=== PATIENT | male | born 1980 | race Caucasian/White ===

== ENCOUNTER 2022-04-18 18:18 | Emergency (ER) | payer OTHER, SELFPAY ==
--- NOTE | ~2022-04-18 | CT_ITS ---
EXAMINATION: CT ABDOMEN AND PELVIS WITH CONTRAST CLINICAL INFORMATION: Bilateral flank pain COMPARISON: CT abdomen pelvis 08/05/2013 TECHNIQUE: Multidetector volumetric images were obtained from the superior aspect of the liver through the pubic symphysis following administration 85 mL of Omnipaque 350 intravenous contrast. Sagittal and coronal reformatted images were obtained on the technologist's workstation. Oral contrast: No This CT examination was performed using dose optimization techniques as appropriate, variously including the following: *Automated exposure control *Adjustment of mA and/or kV according to patient size (this includes techniques or standardized protocols for targeted exams where dose is matched to indication/reason for exam; i.e. extremities or head) *Use of iterative reconstruction technique DLP: 731 mGy-cm FINDINGS: LUNG BASES: Minimal dependent bibasilar atelectasis. LIVER, GALLBLADDER, AND BILIARY TREE: Innumerable small subcentimeter hepatic hypodense lesions, likely tiny cysts. Couple larger low-density cysts are seen in the left liver lobe, largest 2.7 cm in size, increased in size since the prior. Normal hepatic attenuation. No biliary ductal dilation. The gallbladder is unremarkable with no evidence of radiopaque gallstones, gallbladder wall thickening, or obvious pericholecystic inflammatory changes. PANCREAS: Unremarkable. SPLEEN: Unremarkable. ADRENAL GLANDS: Unremarkable. KIDNEYS AND URETERS: Symmetric nephrograms. No renal calculi or hydronephrosis. No striated nephrograms no perinephric inflammatory fat stranding. He small low-density lesions in both kidneys are too small to reliably characterize, likely small cysts, largest approximately 0.9 cm in size. No further follow-up recommended. BLADDER: Unremarkable. GASTROINTESTINAL TRACT: No dilated bowel loops. No bowel wall thickening. Appendix not visualized. No inflammatory change at the base of the cecum. No free air or ascites. ABDOMINAL WALL: Small fat-containing umbilical hernia. LYMPH NODES: No lymphadenopathy. VASCULAR: Normal caliber abdominal aorta. Mild vascular calcifications. PELVIC VISCERA: Unremarkable. OSSEOUS STRUCTURES: No acute fracture. No suspicious appearing osseous lesion. There is an incompletely imaged lucent lesion of bone in the left proximal femur with sclerotic rim, not included in the [id number] of the comparison study. This demonstrates a nonaggressive appearance and may represent fibrous lesion of bone or bone cyst. CT/CT abdomen pelvis w IV con IMPRESSION: 1. No acute intra-abdominal process identified. 2. No renal calculi or hydronephrosis. No CT evidence of pyelonephritis. 3. Multiple benign-appearing hepatic and renal cysts. 4. There is an incompletely imaged lucent lesion of bone in the left proximal femur with nonaggressive appearance possibly a fibrous lesion of bone or bone cyst.
[2022-04-18 18:31] VITALS: BP 139/80; BP 190/91; PULSE 64; PULSE 88; RESP 10; TEMP 37.1; O2SAT 96; O2SAT 99; BMI 26.7
[2022-04-18 18:34] VITALS: BP 139/80; PULSE 64; RESP 13; TEMP 37.2; O2SAT 99
--- NOTE | 2022-04-18 18:38 | ED.GENADULT ---
HPI - General Adult General Chief complaint: Abdominal Pain Stated complaint: nausea vomiting diarrhea 2x days Time Seen by Provider: 04/18/22 18:34 Source: patient and EMS Mode of arrival: EMS Limitations: no limitations History of Present Illness HPI narrative: 41-year-old male no significant medical history presenting to the emergency department fatigue, malaise, nausea, vomiting, diarrhea, bilateral flank pain and some abdominal discomfort x3 days progressively worsening. Patient tells me that he feels like he is dehydrated, he tells me time he eats he has episodes of diarrhea, he has been having nausea and vomiting for the past 2 days however not today. He tells me his diarrhea is completely liquid. Denies recent antibiotic use. No sick contacts. Not vaccinated against the flu. Patient tells me he started feeling slightly better after they gave him IV hydration in the ambulance. Denies chest pain, shortness of breath, headache, vision changes, dizziness, weakness. Related Data Previous Rx's Medication Instructions Recorded loperamide 2 mg capsule 2 mg PO Q6H PRN loose stool #30 04/18/22 caps ondansetron 4 mg disintegrating 4 mg PO Q6H PRN nausea and 04/18/22 tablet vomiting #14 tabs Allergies Allergy/AdvReac Type Severity Reaction Status Date / Time No Known Allergies Allergy Unverified 01/31/20 15:19 Review of Systems Review of Systems: Constitutional : No Weight loss, No Fever, No Chills, + Fatigue, + Malaise ENT/Mouth : No sore throat, No Rhinorrhea Eyes: No Eye Pain, No Swelling, No Redness Cardiovascular : No Chest Pain, No SOB, No Dyspnea on Exertion, No Orthopnea, No Edema, No Palpitations Respiratory : No Cough, No Sputum, No Wheezing Gastrointestinal : + Nausea, + Vomiting, + Diarrhea, No Constipation, + abdominal Pain, No Hematochezia, No Melena Genitourinary : No Dysuria, No Urinary Frequency, No Hematuria, Musculoskeletal : No joint pain, No Myalgias, No Joint Swelling, + flank pain Skin : No Skin Lesions, No rash Neuro : No Weakness, No Numbness, No Dizziness, No Headache Psych : No Anxiety/Panic, No Depression All other systems reviewed and are negative Yes all other systems are reviewed and are negative PMFSH Past Medical History Attestation statement: The following information was validated with the patient. Source: old records reviewed and nursing notes reviewed Social History Social History Alcohol intake: never Smoked in Last 30 Days: Yes Use of substances other than those prescribed or required for medical reasons: Yes Substance Use Type: Marijuana Advance Directives: No Advance Directives Information Provided: No Physical Exam ED Vital Signs: Vital Signs - 24 hr 04/18/22 18:31 04/18/22 18:34 04/18/22 21:08 Temperature 98.8 F 98.9 F 98.4 F Pulse Rate 64 64 59 Respiratory Rate 10 L 13 Blood Pressure 139/80 139/80 129/65 Pulse Oximetry 96 99 98 Oxygen Delivery Method Room Air Room Air Room Air BMI result Body Mass Index 26.7 vss Appearance: Alert.? Oriented X3.? No acute distress.? Head: Normocephalic, atraumatic, no step-offs or deformities Eyes: Pupils equal, round and reactive to light.? Neck: Normal inspection.? Neck supple.? CVS: Normal heart rate and rhythm.? Pulses normal.? Respiratory: No respiratory distress.? Breath sounds normal.? Abdomen: Soft and diffusely tender. Negative murphys sign.? Skin: Skin warm and dry.? Normal skin color.? Normal skin turgor.? Extremities: No lower extremity edema.? No calf ttp. 5/5 strength to bilateral upper and lower extremities Neuro: Oriented X 3.? No motor deficit.? No sensory deficit. CN 2-12 intact Course Reevaluation(s) Reevaluation #1: CBC appears to be within normal limits. Chemistry with slightly low potassium, oral potassium given. Patient's calcium 7.7 give oral supplementation. Patient noted to be positive for influenza likely contributing to his symptoms. CT of the abdomen pelvis pending. Time: 20:00 Reevaluation #2: CT of the abdomen and pelvis with no acute intra-abdominal process is identified. No renal calculior hydronephrosis. Multiple benign-appearing hepatic and renal cysts. And there is an incompletely imaged lucent lesion of the bone in the left proximal femur, not aggressive appearance possibly a fibrous lesion of bone or bone cyst, CT results attached to patient's discharge advised him to follow-up with PCP. At this time patient will be discharged home advised to return with any new or worsening symptoms. Patient's symptoms greater than 48 hours therefore Tamiflu not indicated. Worrisome signs and symptoms outlined on discharge. At this time patient will be discharged home. Time: 21:38 Medications Administered Discontinued Medications Generic Name Dose Route Start Last Admin Trade Name Nicholas PRN Reason Stop Dose Admin Calcium Carbonate 1,500 mg 04/18/22 20:11 04/18/22 20:46 Calcium Carbonate 750 Mg Tab.Chew PO 04/18/22 20:12 1,500 mg ONCE ONE Administration Sodium Chloride 1,000 mls @ 999 mls/hr 04/18/22 18:45 04/18/22 19:59 Ns IV 04/18/22 19:45 Infused .Q1H1M MAIDA Infusion Iohexol 100 ml 04/18/22 20:03 04/18/22 20:04 Iohexol 350 Mg/Ml 100 Ml Infus..Btl IV 04/18/22 20:04 85 ml ONCE ONE Administration Loperamide HCl 2 mg 04/18/22 18:48 04/18/22 19:05 Loperamide Hcl 2 Mg Capsule PO 04/18/22 18:49 2 mg ONCE ONE Administration Ondansetron HCl 4 mg 04/18/22 18:34 04/18/22 18:53 Ondansetron Hcl 4 Mg/2 Ml Vial IVPUSH 04/18/22 18:35 4 mg ONCE ONE Administration Potassium Chloride 20 meq 04/18/22 19:48 04/18/22 20:02 Potassium Chloride Er 20 Meq Tab.Er.Prt PO 04/18/22 19:49 20 meq ONCE ONE Administration Medical Decision Making [facility] Narrative Medical decision making narrative: 1839 41-year-old male presents with nausea, vomiting, diarrhea, diffuse abdominal discomfort, flank discomfort b/, fatigue & malaise x3 days. Physical exam diffusely tender abd. Likely viral in origin. No point tenderness w/ palpation of abdomen on exam, unlikely acute abdomen, cholecystitis, diverticulitis, pancreatitis, small or large bowel obstruction, appendicitis. Unlileley C diff. Plan basic labs, viral panel. Will obtain CT abd/ pelvis. Medical Records Medical records reviewed: Yes I reviewed the patient's medical records. Lab Data Lab results reviewed: Yes I reviewed the patient's lab results. Result diagrams: 04/18/22 19:01 04/18/22 19:01 Labs: Lab Results 04/18/22 04/18/22 04/18/22 Range/Units 19:01 19:01 19:02 WBC 7.4 (4.8-10.8) X10*3/uL RBC 4.45 L (4.60-5.80) X10*6/uL Hgb 13.8 L (14.0-18.0) g/dl Hct 40.1 L (42.0-52.0) % MCV 90.1 (80.0-98.0) fL MCH 31.0 (27.0-33.0) pg MCHC 34.4 (31.0-36.0) g/dl RDW 13.2 (11.0-16.0) % Plt Count 186 (160-400) X10*3/uL MPV 9.6 (9.4-12.4) fL Immature Gran % (Auto) 0.3 (0.0-0.4) % Neut % (Auto) 71.0 (45-73) % Lymph % (Auto) 17.0 L (20-40) % Hudson % (Auto) 11.3 H (2-11) % Eos % (Auto) 0.1 (0-4) % Baso % (Auto) 0.3 (0-2) % Lymph # (Auto) 1.3 (1.2-4.9) X10*3/uL Hudson # (Auto) 0.8 (0.1-1.2) X10*3/uL Eos # (Auto) 0.0 (0.0-0.4) X10*3/uL Baso # (Auto) 0.0 (0.0-0.2) X10*3/uL Abs Immat Gran (auto) 0.02 (0.00-0.03) X10*3/uL Absolute Neuts (auto) 5.2 (2.0-8.3) x10*3/uL Absolute Nucleated RBC 0.000 (0.0-0.012) X10*3/uL Nucleated RBC % (auto) 0.0 (0.0-0.2) /100WBC Sodium 135 (135-145) mmol/L Potassium 3.2 L (3.3-5.1) mmol/L Chloride 111 H (96-108) mmol/L Carbon Dioxide 22 (22-29) mmol/L Anion Gap 5 L (12-20) BUN 14 (9-16) mg/dL Creatinine 0.64 (0.5-1.4) mg/dL Estim Creat Clear Calc 182.7 Estimated GFR > 60 Random Glucose 78 (60-115) mg/dL Calcium 7.7 L (8.4-10.2) mg/dL Magnesium 1.6 (1.6-2.6) mg/dL Total Bilirubin 0.4 (0.0-1.0) mg/dL AST 13 (5-37) U/L ALT 10 (0-40) U/L Alkaline Phosphatase 47 (39-117) U/L Total Protein 5.5 L (6.5-8.0) g/dL Albumin 3.8 (3.5-5.0) g/dL Urine Color Urine Appearance Urine pH (5.0-9.0) Ur Specific [place] (1.005-1.025) Urine Protein (Neg-Trace) mg/dL Urine Glucose (UA) (Negative) mg/dL Urine Ketones (Negative) mg/dL Urine Blood (Negative) Urine Nitrite (Negative) Ur Leukocyte Esterase (Negative) Urine RBC (0-2) /HPF Urine WBC (0-5) /HPF Ur Squamous Epith Cells (0-2) /HPF Urine Bacteria (None Seen) Hyaline Casts (0-2) /LPF Influenza Type A (PCR) POSITIVE A (Negative) Influenza Type B (PCR) NEGATIVE (Negative) RSV RNA Qual (PCR) NEGATIVE (Negative) SARS-CoV-2 RNA (RT-PCR) NEGATIVE (Negative) 04/18/22 Range/Units 20:04 WBC (4.8-10.8) X10*3/uL RBC (4.60-5.80) X10*6/uL Hgb (14.0-18.0) g/dl Hct (42.0-52.0) % MCV (80.0-98.0) fL MCH (27.0-33.0) pg MCHC (31.0-36.0) g/dl RDW (11.0-16.0) % Plt Count (160-400) X10*3/uL MPV (9.4-12.4) fL Immature Gran % (Auto) (0.0-0.4) % Neut % (Auto) (45-73) % Lymph % (Auto) (20-40) % Hudson % (Auto) (2-11) % Eos % (Auto) (0-4) % Baso % (Auto) (0-2) % Lymph # (Auto) (1.2-4.9) X10*3/uL Hudson # (Auto) (0.1-1.2) X10*3/uL Eos # (Auto) (0.0-0.4) X10*3/uL Baso # (Auto) (0.0-0.2) X10*3/uL Abs Immat Gran (auto) (0.00-0.03) X10*3/uL Absolute Neuts (auto) (2.0-8.3) x10*3/uL Absolute Nucleated RBC (0.0-0.012) X10*3/uL Nucleated RBC % (auto) (0.0-0.2) /100WBC Sodium (135-145) mmol/L Potassium (3.3-5.1) mmol/L Chloride (96-108) mmol/L Carbon Dioxide (22-29) mmol/L Anion Gap (12-20) BUN (9-16) mg/dL Creatinine (0.5-1.4) mg/dL Estim Creat Clear Calc Estimated GFR Random Glucose (60-115) mg/dL Calcium (8.4-10.2) mg/dL Magnesium (1.6-2.6) mg/dL Total Bilirubin (0.0-1.0) mg/dL AST (5-37) U/L ALT (0-40) U/L Alkaline Phosphatase (39-117) U/L Total Protein (6.5-8.0) g/dL Albumin (3.5-5.0) g/dL Urine Color Dark Yellow Urine Appearance Clear Urine pH 5.5 (5.0-9.0) Ur Specific [place] >= 1.030 H (1.005-1.025) Urine Protein 30 (1+) H (Neg-Trace) mg/dL Urine Glucose (UA) Negative (Negative) mg/dL Urine Ketones Trace (Negative) mg/dL Urine Blood Negative (Negative) Urine Nitrite Negative (Negative) Ur Leukocyte Esterase Negative (Negative) Urine RBC 0-2 (0-2) /HPF Urine WBC 0-5 (0-5) /HPF Ur Squamous Epith Cells 0-2 (0-2) /HPF Urine Bacteria None Seen (None Seen) Hyaline Casts 0-2 (0-2) /LPF Influenza Type A (PCR) (Negative) Influenza Type B (PCR) (Negative) RSV RNA Qual (PCR) (Negative) SARS-CoV-2 RNA (RT-PCR) (Negative) Critical Care Time Critical Care Time Critical Care Time: No Discharge Plan Discharge Clinical Impression: Influenza A, Nausea, Acute hypokalemia, Diarrhea Patient Disposition: Home, Self-Care Instructions: Hypokalemia (ED), Influenza (ED), Flu Shot (Vaccine) for Adults (ED), Acute Nausea and Vomiting (ED), Acute Diarrhea (ED) Additional Instructions: Take your medications as prescribed. If you were prescribed antibiotics today, it is important that you take your medication to their entirety, do not skip any doses, do not finish them early. Follow-up with your primary care provider this week. Return to the emergency department with new or worsening symptoms. Such as fevers, chills, chest pain, shortness of breath, nausea, vomiting, dizziness, headache, vision changes, lethargy In case of emergency call 911 Loperamide has been sent to her pharmacy for diarrhea, please take this after eating to help prevent loose stool. Ondansetron or Zofran has been sent for nausea and vomiting please take this as prescribed do not take more than the prescribed dose as this can lead to cardiac dysrhythmias. Your potassium was noted to be slightly low while in the department we gave you oral potassium, please follow-up with your PCP for repeat laboratory studies. Her noted to be positive for flu, however symptoms have been going on for greater than 48 hours, your not a candidate for Tamiflu. Supportive measures are treatment of choice therefore drink plenty of fluids, if needed you can take ibuprofen every 6 hours, Tylenol every 4 hours as needed for pain, discomfort, fevers and chills.\ You are contagious! Wash her hands well. Drink plenty of fluids CT/CT abdomen pelvis w IV con IMPRESSION: 1.? No acute intra-abdominal process identified. 2.? No renal calculi or hydronephrosis. No CT evidence of pyelonephritis. 3.? Multiple benign-appearing hepatic and renal cysts. 4.? There is an incompletely imaged lucent lesion of bone in the left proximal femur with nonaggressive appearance possibly a fibrous lesion of bone or bone cyst. Prescriptions: New ondansetron 4 mg tablet,disintegrating 4 mg PO Q6H PRN (Reason: nausea and vomiting) Qty: 14 0RF loperamide 2 mg capsule 2 mg PO Q6H PRN (Reason: loose stool) Qty: 30 0RF Referrals: Physician,Unknown J [Primary Care Provider] - 2 days Stand Alone Forms: Work/School Release
[2022-04-18] MEDS: ondansetron HCL 4 MG/2 ML VIAL IVPUSH (18:53)
[2022-04-18] MEDS: 0.9 % Sodium Chloride 1,000 ML 999 ML IV (18:53)
[2022-04-18] MEDS: Loperamide HCl 2 MG CAPSULE PO (19:05)
[2022-04-18 19:07] LABS: Basophils Percent Auto 0.3 % (0-2); Eosinophils Percent Auto 0.1 % (0-4); Hematocrit 40.1 % (42.0-52.0); Hemoglobin 13.8 g/dl (14.0-18.0); Imm Gran Abs Auto 0.02 X10*3/uL (0.00-0.03); Imm Gran Pct Auto 0.3 % (0.0-0.4); Lymphocytes Absolute Auto 1.3 X10*3/uL (1.2-4.9); MANUAL DIFF FLAG NO; Mean Corpuscular HGB Conc 34.4 g/dl (31.0-36.0); Mean Corpuscular Volume 90.1 fL (80.0-98.0); Mean Platelet Volume 9.6 fL (9.4-12.4); Monocytes Absolute Auto 0.8 X10*3/uL (0.1-1.2); Monocytes Percent Auto 11.3 % (2-11); Neutrophils Absolute Auto 5.2 x10*3/uL (2.0-8.3); Platelet Count 186 X10*3/uL (160-400); Red Blood Count 4.45 X10*6/uL (4.60-5.80); Red Cell Distribution Width 13.2 % (11.0-16.0); White Blood Count 7.4 X10*3/uL (4.8-10.8)
[2022-04-18 19:39] LABS: Alanine Aminotransferase 10 U/L (0-40); Albumin Level 3.8 g/dL (3.5-5.0); Alkaline Phosphatase 47 U/L (39-117); Anion Gap 5 (12-20); Aspartate Amino Transferase 13 U/L (5-37); Bilirubin Total 0.4 mg/dL (0.0-1.0); Blood Urea Nitrogen 14 mg/dL (9-16); Calcium 7.7 mg/dL (8.4-10.2); Carbon Dioxide 22 mmol/L (22-29); Chloride 111 mmol/L (96-108); Creatinine Clr Calc Pharmacy 182.7; Estimated Glomerular Filt Rate > 60; Glucose Random 78 mg/dL (60-115); Magnesium 1.6 mg/dL (1.6-2.6); Potassium 3.2 mmol/L (3.3-5.1); Sodium 135 mmol/L (135-145); Total Protein 5.5 g/dL (6.5-8.0)
[2022-04-18 19:43] LABS: Influenza A PCR POSITIVE (Negative); Influenza B PCR NEGATIVE (Negative); Resp Syncy Virus RNA Qual PCR NEGATIVE (Negative); SARS COV2 PCR INHOUSE NEGATIVE (Negative)
[2022-04-18] MEDS: Potassium Chloride ER 20 MEQ TAB.ER.PRT PO (20:02)
[2022-04-18] MEDS: iohexoL 350 MG/ML 100 ML INFUS..BTL IV (20:04)
[2022-04-18 20:19] LABS: Appearance Urine Clear; Color Urine Dark Yellow; Glucose Urine UA Negative (Negative); Leukocyte Esterase Urine Negative (Negative); Nitrite Urine Negative (Negative); PH 5.5 (5.0-9.0); Specific Gravity - Urine >= 1.030 (1.005-1.025); UMIC TRIGGER UACC YES; Urine Blood Negative (Negative); Urine Ketones Trace mg/dL (Negative); Urine Protein 30 (1+) mg/dL (Neg-Trace)
[2022-04-18 20:22] LABS: Bacteria Urine None Seen (None Seen); Hyaline Casts Urine 0-2 /LPF (0-2); RBC Urine 0-2 /HPF (0-2); Squamous Epithelial Cell Urine 0-2 /HPF (0-2); WBC Urine 0-5 /HPF (0-5)
[2022-04-18] MEDS: Calcium Carbonate 750 MG TAB.CHEW 1500 MG PO (20:46)
[2022-04-18 21:08] VITALS: BP 129/65; PULSE 59; TEMP 36.9; O2SAT 98
== END 2022-04-18 21:50 | disposition home or self-care (01) ==
PROVIDERS: Physician Assistant; Emergency Provider Internal Medicine
DX: J10.1 Influenza due to other identified influenza virus with other respiratory manifestations (principal); E87.6 Hypokalemia; R19.7 Diarrhea, unspecified; Z20.822 Contact with and (suspected) exposure to COVID-19; Z79.899 Other long term (current) drug therapy
CPT/HCPCS: 0241U; 36415; 74177; 80053; 81001; 83735; 85025; 96361; 96374; 99284; J2405; Q9967

== ENCOUNTER 2024-04-02 09:48 | Outpatient (REF) | payer OTHER, SELFPAY | END 2024-04-02 09:49 | disposition home or self-care (01) | LOC: HO.HOSX 09:48 | PROVIDERS: Visit Provider Physician Assistant | DX: M77.11 Lateral epicondylitis, right elbow (principal); G56.21 Lesion of ulnar nerve, right upper limb; G56.01 Carpal tunnel syndrome, right upper limb | CPT/HCPCS: 73080; 99202 ==

== ENCOUNTER 2024-04-02 10:40 | Outpatient (AMB) | payer OTHER, SELFPAY ==
--- NOTE | 2024-04-02 10:46 | MHC.OFFVIS ---
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 Patient reports ongoing pain for about a couples months. He states back in January he started to get muscle spasms through out his arm. Patient was given naproxen with no relief. 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 The patient was seen at [facility] ED on 03/14/24 for the pain in the right forearm/elbow. X-rays of the right upper extremity were obtained in the ER, which revealed negative for fractures. He was prescribed methocarbamol 750 mg PO Q6H PRN and naproxen 500 mg PO BID PRN for pain. He was recommended to stay well hydrated and to rest. He was advised to wear the sling as needed for comfort and to apply warm moist compresses several times daily as tolerated. While in the office today, the patient reports ongoing right elbow pain for about a couple of months. He states he started to experience muscle spasms throughout his arm in January 2024. He was prescribed naproxen 500 mg PO BID PRN with no relief. He states that he noticed mild numbness for 2-3 weeks. [facility] Social History (Updated 04/02/24 @ 10:54 by Tee Schultz) Alcohol intake: current Alcohol intake frequency: holidays/special occasions only Patient Tobacco Use Status: Current everyday Tobacco user Cigarette Packs Per Day: 1 Substance Use Type: Marijuana Current occupational status: disabled Current occupation: right hand dominant Review of Systems Const All systems reviewed & are unremarkable except as noted in HPI and below Physical Exam Vital Signs: BMI result Body Mass Index 31.0 Const General: cooperative and no acute distress Orientation/consciousness: patient oriented x3 Resp Effort & Inspection: normal respiratory effort and able to speak in complete sentences Cardio Peripheral pulses: Peripheral pulses 2+ throughout Skin General skin exam: no rashes or lesions noted Neuro General: patient oriented x3 Extrem Other: Right elbow: Tenderness to palpation over the lateral epicondyle. No tenderness over the medial epicondyle. Able to perform full elbow extension, flexion, pronation, and supination. Pain along the lateral epicondyle with resisted wrist extension. Negative Tinal?s at the cubital and carpal tunnel. NVI. Assessment & Plan Assessment & Plan (1) Cubital tunnel syndrome on right: Code(s): G56.21 - Lesion of ulnar nerve, right upper limb Category: Medical (2) Carpal tunnel syndrome on right: Code(s): G56.01 - Carpal tunnel syndrome, right upper limb Category: Medical (3) Epicondylitis, lateral, right: Code(s): M77.11 - Lateral epicondylitis, right elbow Category: Medical Plan Mr. Balderas is a 43-year-old male who presents in the office today, as a new patient, for an evaluation or right forearm/elbow pain. The patient was seen at [facility] ED on 03/14/24 for the pain in the right forearm/elbow. X-rays of the right upper extremity were obtained in the ER, which revealed negative for fractures. He was prescribed methocarbamol 750 mg PO Q6H PRN and naproxen 500 mg PO BID PRN for pain. He was recommended to stay well hydrated and to rest. He was advised to wear the sling as needed for comfort and to apply warm moist compresses several times daily as tolerated. While in the office today, the patient reports ongoing right elbow pain for about a couple of months. He states he started to experience muscle spasms throughout his arm in January 2024. He was prescribed naproxen 500 mg PO BID PRN with no relief. He states that he noticed mild numbness for 2-3 weeks. The patient will obtain an EMG study to evaluate the possibility of nerve compression causing intermittent numbness and tingling in the right forearm into the right hand. I also recommended a counterforce brace or tennis elbow brace and information was provided to the patient in regards to what type of brace is recommended. He can obtain the brace [id number]. I have sent a prescription for meloxicam 15 mg PO daily to the pharmacy. Follow-up will be after the EMG is obtained, or sooner if needed. X-rays of the right elbow, which were obtained while in the office today and were reviewed by me, Madeline Enciso PA-C, revealed: Negative for any acute fracture or dislocation. Orders: Orders NE electromyogram (EMG) Today G56.01 - Carpal tunnel syndrome, right upper limb, G56.21 - Lesion of ulnar nerve, right upper limb XR elbow RT min 3V Today M25.529 - Pain in unspecified elbow Medications: New meloxicam 15 mg PO DAILY 30 tabs 0RF 30 days Patient Instructions: Scribed by Romi Mendes, program medical director, for Madeline Enciso PA-C on 04/03/2024 at 11:26 am EST. Coding Level of Care Code New Pt Level 4 (54927) Diagnoses Cubital tunnel syndrome on right G56.21 Carpal tunnel syndrome on right G56.01 Epicondylitis, lateral, right M77.11
[2024-04-02 10:55] VITALS: BMI 31.0
== END 2024-04-02 11:04 | disposition home or self-care (01) ==
LOC: HO.HOS 10:40
PROVIDERS: Visit Provider Physician Assistant
DX: G56.21 Lesion of ulnar nerve, right upper limb (principal); G56.01 Carpal tunnel syndrome, right upper limb; M77.11 Lateral epicondylitis, right elbow
CPT/HCPCS: 99204

== ENCOUNTER 2024-05-04 14:03 | Outpatient (REF) | payer OTHER, SELFPAY ==
--- NOTE | 2024-05-04 14:06 | EMG_ITS ---
Chief complaint: Right elbow pain with radiation down to 4th and 5th digits Reason for referral: Evaluate for ulnar neuropathy Referred by: Madeline JUAREZ Procedure done: Right upper extremity NCS/EMG Precautions and/or limitations: None The limb temperature was monitored continuously and remained between 32-36 degrees C during the performance of the NCS. Ulnar motor NCS was performed with moderate elbow flexion between 70-90 degrees, with across-elbow distance of 10 cm. Nerve Conduction Studies Anti Sensory Summary Table ?Stim Site NR Onset (ms) Norm Onset (ms) Peak (ms) Norm Peak (ms) O-P Amp (?V) Norm O-P Amp Site1 Site2 Delta-0 (ms) Dist (cm) Refugio (m/s) Norm Refugio (m/s) Right Median Anti Sensory (2nd Digit) Wrist ? 2.9 3.7 <3.6 23.3 >10 Wrist 2nd Digit 2.9 14.0 48 Right Ulnar Anti Sensory (5th Digit) Wrist ? 0.6 3.4 <3.7 28.0 >15.0 Wrist 5th Digit 0.6 14.0 233 Motor Summary Table ?Stim Site NR Onset (ms) Norm Onset (ms) O-P Amp (mV) Norm O-P Amp iAmp (mV) Amp (1st) (%) Site1 Site2 Delta-0 (ms) Dist (cm) Refugio (m/s) Norm Refugio (m/s) Right Median Motor (Abd Poll Brev) Wrist ? 4.5 <3.9 9.6 >4.5 11.7 100.0 Elbow Wrist 4.9 25.0 51 >45 Elbow ? 9.4 9.7 12.0 101.0 Right Ulnar Motor (Abd Dig Minimi) Wrist ? 2.8 <3.0 6.8 >5 8.2 100.0 B Elbow Wrist 4.5 24.0 53 >45 B Elbow ? 7.3 6.8 8.5 100.0 A Elbow B Elbow 1.5 10.0 67 >45 A Elbow ? 8.8 6.9 8.7 101.5 Comparison Summary Table ?Stim Site NR Peak (ms) Norm Peak (ms) P-T Amp (?V) Site1 Site2 Delta-P (ms) Norm Delta (ms) Right Median/Radial Dig I Comparison (Digit 1 - 10cm) Median ? 3.3 <2.9 44.2 Median Radial 0.8 Radial ? 2.5 <2.8 39.1 EMG ?Side Muscle Nerve Root Ins Act Fibs Psw Amp Dur Poly Recrt Int Pat Comment Right 1stDorInt Ulnar C8-T1 Nml Nml Nml Nml Nml 0 Nml Complete Right FlexCarRad Median C6-7 Nml Nml Nml Nml Nml 0 Nml Complete Right Biceps Musculocut C5-6 Nml Nml Nml Nml Nml 0 Nml Complete Right Triceps Radial C6-7-8 Nml Nml Nml Nml Nml 0 Nml Complete Right Deltoid Axillary C5-6 Nml Nml Nml Nml Nml 0 Nml Complete FINDINGS: Right median motor nerve showed prolonged distal latency, normal amplitude and normal conduction velocity. Right median sensory nerve showed prolonged peak latencies. Increased interlatency difference between right median radial sensory nerves. All other nerves tested were within normal. Concentric needle EMG was performed in selected muscles of the right upper extremity. Study did not reveal signs of electric abnormalities as shown in the table above. IMPRESSION: 1. This is an abnormal study. 2. There is no electrodiagnostic evidence for ulnar neuropathy. 3. Incidentally, there is electrodiagnostic evidence for right moderate-severe median neuropathy at the wrist, consistent with carpal tunnel syndrome. 4.. There is no electrodiagnostic evidence for brachial plexopathy or cervical radiculopathy. Thank you for your kind referral. Renee Sherwood MD, RITESH Board Certified, [place] Board of Physical Medicine and Rehabilitation (ABPMR) Board Certified, [place] Board of Electrodiagnostic Medicine (ABEM) [place]OD[place] [id number] [facility]
== END 2024-05-04 14:04 | disposition home or self-care (01) ==
LOC: HO.NEURO 14:03
PROVIDERS: Visit Provider Physician Assistant
DX: G56.21 Lesion of ulnar nerve, right upper limb (principal); G56.01 Carpal tunnel syndrome, right upper limb
CPT/HCPCS: 95886; 95909

== ENCOUNTER → 2024-05-04 14:06 | Outpatient (BNV) | payer OTHER, SELFPAY | PROVIDERS: Visit Provider Physical Medicine & Rehabilitation | DX: G56.01 Carpal tunnel syndrome, right upper limb (principal) | CPT/HCPCS: 95886; 95909 ==

== ENCOUNTER → 2024-06-13 12:44 | Outpatient (BNVA) | payer OTHER, SELFPAY | PROVIDERS: Visit Provider Orthopaedic Surgery | DX: M77.11 Lateral epicondylitis, right elbow (principal); G56.01 Carpal tunnel syndrome, right upper limb | CPT/HCPCS: 20551; 99212; J1100; J2003 ==

== ENCOUNTER 2024-07-09 15:14 | Outpatient (RCR) | payer OTHER, SELFPAY ==
--- NOTE | 2024-06-25 11:28 | MHC.OT.OEV ---
[address] [phone] F: [phone] Occupational Therapy Evaluation Patient Name: Kyler Balderas Diagnosis: (R) Lateral Epicondylitis Date of Onset: Date of Surgery: Attending Provider: Cleopatra Bravo Prescribed Treatment: Follow Up Appointment: History of Current Condition: Patient is a 43 y/o (R)handed male who was referred to skilled OT with a diagnosis of (R)Lateral Epicondylitis. He also has (R) carpal tunnel and had nerve conduction study indicating serve median never compression. He has CTR scheduled for 08/2024. On 06/13 he had cortisone injection for elbow, he reported because of the injection he has no pain but it feels tight all the time. He reported his PLOF as (I)ADLs/IADLs- lives with and stated he has been on disability for 17 years. He reports difficulty with bending elbow, keeping it straight, difficulty picking up items such as a coffee cup. At night he has difficulty sleeping due to discomfort and has numbness/tingling constantly. Waldo wearing a brace at night. He enjoys working on cars, plays video games. Significant Medical History: Precautions/Contraindications: Patient Goals: Hand Dominance: Right Observations: QuickDASH Score: 65.9 Prior Level of Function and Occupation Self Care, Employment, Leisure: On disability (I)ADLs/IADLs Living Situation, Family and/or Social Support: Lives with Current Level of Function and Occupation Self Care, Employment, Leisure: mod (A) ADLs/IADLs does not participate in leisure activities Sleep: Impaired Driving: Vision: Balance: Pain Assessment Pain Score: Pain Scale Used: Pain Location and Description: Feels very tight Aggravating Factors: Alleviating Factors: Cortisone injection Skin and Soft Tissue Assessment Skin and Soft Tissue: Comments: Nerve assessment Ulnar Nerve: Median Nerve: Radial Nerve: Comments: Sensory Assessment Temperature: Light Touch: Proprioception: Vibration: Comments: Edema Assessment Upper Extremity: Lower Extremity: Comments: Dexterity Assessment Dexterity: Comments: Special Tests Comments: Cozen's (-) Mill's (-) Radial Drill Press Set Up Operator strength test (+) *results may vary due to cortisone injection AROM(PROM) Strength Cervical Cervical Flexion: Cervical Extension: Cervical Lateral Flexion: Cervical Rotation: Comments: Shoulder Flexion: Extension: Abduction: Internal Rotation: External Rotation: Comments: WFL Flexion: Extension: Abduction: Internal Rotation: External Rotation: Comments: WFL Elbow Flexion: Extension: Pronation: Supination: Comments: limited due to pain Flexion: Extension: Pronation: Supination: Comments: WFL Wrist Flexion: 92 Extension: 60 Ulnar Deviation: 33 Radial Deviation: 30 Comments: Flexion: Extension: Ulnar Deviation: Radial Deviation: Comments: Thumb Thumb CMC Flexion: Thumb MCP Flexion: Thumb IP Flexion: Radial Abduction: Palmar Abduction: [place] (Kapandji 0-10): Comments: WFL Digits Index MCP: PIP: DIP: Long MCP: PIP: DIP: Ring MCP: PIP: DIP: Small MCP: PIP: DIP: Comments: demonstrated making a composite fist Gross Grasp: (R)75lbs; (L)98lbs. Lateral Pinch: 19 Two-Point Pinch: 11 Three-Jaw Logan: 15 Comments: Patient Education Primary Language: Bolivian Seasonal Driver Required: Current Knowledge: Understands information with skills for self-management Teaching Method: Demonstration Education Needs Identified on Evaluation: ADL's Equipment Use Exercise Pain How did patient/family demonstrate learning? Patient demonstrates Patient verbalizes Barriers to Learning: None Readiness for Learning: Accepting Who was educated? Patient Comments: Plan of Care Assessment: Based on initial OT evaluation patient presents with impaired strength, pain, numbness/tingling . Provocative testing resulted in (+) body press operator strength test, (-)Mill's and Cozen's test however, results may be impacted due to cortisone injection. Quick DASH score= 65.9% indicating patient's perceived UE impairment during self care tasks. At this time patient's CLOF is mod (A) self care tasks due to the documented impairments. It is recommended that patient receive skilled OT intervention in order for patient to achieve his PLOF of (I). Thank you for your referral. STG Duration: 2 weeks Short Term Goals: Patient will tolerated wrist orthosis wear schedule for at least 8 hours at night Patient will report no tightness at the elbow during self care tasks Patient will increase body press operator strength to 80lbs. LTG Duration: 4 weeks Superintendent Stations Goals: Patient will be (I) with HEP Quick DASH will decrease to at least 45% indicating overall improvement in UE during self caret tasks Frequency and Duration: The patient will be seen 2x a week for 4 week Treatment Plan: Therapeutic Exercise Therapeutic Activity Home Exercise Program Splinting Patient Education Edema Control ADL Training Ultrasound NMES Iontophoresis Paraffin Fluidotherapy MHP Cold Packs Joint Mobilization Soft Tissue Mobilization Kinesiotaping Other (see comments) Skilled OT eval and treat Electronically Signed By: MARILYN Sow/VELASQUEZ Olvera Reviewed/agree with student documentation: Therapist: Please sign and return to therapist, Thank you for your referral.
--- NOTE | 2024-08-31 14:24 | MHC.OT.IDC ---
[address] [phone] F: [phone] Occupational Therapy Inpatient Daily Note Patient Name: Kyler Balderas Discharge Date: Assessment: Discharge Reason: Discharge Recommendations: Comments: Electronically Signed By: Flores Van OTR/L, CLT Reviewed/agree with student documentation: Therapist:
== END 2024-08-31 14:24 | disposition home or self-care (01) ==
LOC: HO.OT 15:14
PROVIDERS: Visit Provider Orthopaedic Surgery
DX: M77.11 Lateral epicondylitis, right elbow (principal)
CPT/HCPCS: 29130; 97035; 97110; 97140; 97165; 97760

== ENCOUNTER 2024-07-24 08:56 | Day surgery (SDC) | payer OTHER, SELFPAY ==
--- OUTSIDE RECORDS SUMMARY | 2024-07-16 11:43 | XMS_ITS | Clinical Summary ---
Author Organization Patient Business Ser [facility] Address [address] [place] [address] Care Team Providers Care Turning Machine Operator Name Role Phone Oumar Burciaga Primary Care Provider [phone] Surgical History Surgery Date Site/Laterality Comments HERNIA REPAIR PROCEDURE: HISTORICAL HERNIA REPAIR/ING APPENDECTOMY PROCEDURE: HISTORICAL APPENDECTOMY WISDOM TOOTH EXTRACTION PROCEDURE: HISTORICAL WISDOM TEETH EXTRACTION HAND SURGERY PROCEDURE: [place] UNLISTED PROCEDURE HANDS/FINGERS Medical History Medical History Date Comments Bronchitis, chronic (CMS/HCC) DX :Bronchitis, chronic (HCC) Family History Medical History Relation Name Comments Stroke Aunt Other cancer Mother kidney, ovarian , HTN, Thyroid Disorder Thyroid disease Sister Stroke Uncle Blindness Neg Hx Cataracts Neg Hx Glaucoma Neg Hx Macular degeneration Neg Hx Strabismus Neg Hx Relation Name Status Comments Aunt Mother Sister Uncle Social History Tobacco Use Types Packs/Day Years Used Date Smoking Tobacco: Every Day Cigarettes Smokeless Tobacco: Current Alcohol Use Standard Drinks/Week Comments Yes 0 (1 standard drink = 0.6 oz pur e alcohol) Sex and Gender Information Value Date Recorded Sex Assigned at Not on file Legal Sex Male 4:02 PM EST Gender Identity Not on file Sexual Orientation Not on file Obstetrics History Last Filed Vital Signs Vital Sign Reading Time Taken Comments Blood Pressure 128/84 11/04/2022 11:27 AM EDT Pulse 60 11/04/2022 11:27 AM EDT Temperature - - Respiratory Rate - - Oxygen Saturation - - Inhaled Oxygen Concentration - - Weight 103 kg (228 lb) 11/04/2022 11:27 AM EDT Height 193 cm (6' 4 ) 11/04/2022 11:27 AM EDT Body Mass Index 27.75 11/04/2022 11:27 AM EDT Plan of Treatment Health Maintenance Due Date Last Done Comments Hepatitis B Vaccines (1 of 3 - 19+ 3-dose series) 1997 Pneumococcal Vaccine: Pediatrics (0 to 5 Years) and At-Risk Patients (6 to 64 Years) (2 of 2 - PCV) 11/03/2017 11/03/2016 Cholesterol Screening (Lipid Panel) 04/14/2022 Colorectal Cancer Screening: Colonoscopy 04/14/2022 Depression Screening 04/14/2022 HIV Screening 04/14/2022 Hepatitis C Screening 04/14/2022 Social Influencers of Health Screening 04/14/2022 COVID-19 Vaccine (1 - 2023-2 5 season) 2024 Influenza Vaccine (#1) 2024 03/03/2010 DTaP,Tdap,and Td Vaccines (3 - Td or Tdap) 11/04/2032 11/04/2022, 08/06/2008 HIB Vaccines Aged Out No longer eligi ble based on patient's age to complete this topic HPV Vaccines Aged Out No longer eligi ble based on patient's age to complete this topic Hepatitis A Vaccines Aged Out No long er eligible based on patient's age to complete this topic IPV Vaccines Aged Out No longer eligi ble based on patient's age to complete this topic MMR Vaccines Aged Out No longer eligi ble based on patient's age to complete this topic Meningococcal ACWY Vaccine Aged Out N o longer eligible based on patient's age to complete this topic Meningococcal B Vacine Aged Out No lo nger eligible based on patient's age to complete this topic RSV Immunization Patients Under 20 months Aged Out No longer eligible b ased on patient's age to complete this topic Varicella Vaccines Aged Out No longer eligible based on patient's age to complete this topic Care Teams Turning Machine Operator Relationship Specialty Start Date End Date Oumar Burciaga DO [address] [place] [id number] PCP - General 04/19/22
[2024-07-24 09:31] VITALS: BP 126/60; PULSE 60; RESP 15; TEMP 36.7; O2SAT 98; BMI 25.0
--- NOTE | 2024-07-24 09:47 | P.OP_ITS ---
Operative Note Operative Note Date of Service: 07/24/24 Narrative: Preop diagnosis: 1. Right Carpal tunnel syndrome Postop diagnosis: same Procedure: 1. Right Carpal tunnel release Surgeon: Cleopatra Bravo MD Materials Handling Coordinator: Bayron JUAREZ Anesthesia: local block using 1% lidocaine with epinephrine Findings: Thickened transverse carpal ligament. EBL: Less than 5 mL Specimens: None Complications: None Disposition: Brought to recovery room in stable condition Plan: Follow-up for 10-14 days for wound check and suture removal Indications: The patient is 43 years old, with right carpal tunnel syndrome that has been unresponsive to nonoperative management. The risks and benefits of operative treatment including but not limited to risk of damage to blood vessels, nerves, tendons, infection, persistent pain, persistent symptoms, or possible need for additional surgery were discussed with the patient and the patient wishes to proceed with surgery. Procedure: Once consent was obtained a local block was performed using a combination of 1% lidocaine with epinephrine. The patient was then brought back to the operating suite and placed on the operative table in supine position. The right upper extremity was prepped and draped in a standard surgical fashion. Once assured that we had a good block, a 2.0 cm longitudinal incision was made centered over the carpal tunnel. The incision was made through the skin to the subcutaneous tissues using a #15 blade. Dissection was made down to the level of the transverse carpal ligament with care being taken to protect the palmar cutaneous nerve. Once the transverse carpal ligament was clearly visualized, a longitudinal incision was made in the transverse carpal ligament 1st using a #15 blade, then using tenotomy scissors under direct visualization. Care was taken to look for and protect the motor branch of the median nerve when seen in this area. Once satisfied with our carpal tunnel release the wound was copiously irrigated with normal saline and hemostasis was obtained with a brief period of local pressure. The skin edges were reapproximated with some 5.0 nylon suture material and a sterile dressing was applied. The patient appears to have tolerated the procedure well and with no complications. All digits were well vascularized at the conclusion of the case.
--- NOTE | 2024-07-24 09:47 | MHC.SHP ---
Pre-Procedural Eval Section A - 24 Hr Update-Section A only Date of Service: 07/24/24 The patient is an INPATIENT: No Changes since office visit: No Cold of Flu in the past 2 weeks, No New Medical Problems, No Changes in Medication and No Patient answered all questions The patient has been examined within 24 hours of the surgical procedure. The History & Physical has been completed within 30 days and I have reviewed it.: Yes Section B - Complete if H&P > 30 days Chief Complaint: Carpal tunnel syndrome, right upper limb Allergies: Allergies Allergy/AdvReac Type Severity Reaction Status Date / Time No Known Allergies Allergy Verified 07/24/24 09:32 Plan Diagnosis/Plan: Unchanged I have reviewed the history and physical and performed a pertinent physical examination on my patient. No changes have occurred unless specified. Time Spent With Patient Time: Total time managing care of this patient today ____ minutes.
[2024-07-24 10:45] VITALS: BP 141/88; PULSE 52; RESP 18; TEMP 36.6; O2SAT 99
== END 2024-07-24 10:51 | disposition home or self-care (01) ==
PROVIDERS: Visit Provider Orthopaedic Surgery
PROC: (CPT 64721; principal; 2024-07-24 11:30)
DX: G56.01 Carpal tunnel syndrome, right upper limb (principal); R20.0 Anesthesia of skin; M77.11 Lateral epicondylitis, right elbow; M79.631 Pain in right forearm; F17.210 Nicotine dependence, cigarettes, uncomplicated
CPT/HCPCS: 64721; J0171; J2003

== ENCOUNTER → 2024-07-24 08:56 | Outpatient (BNV) | payer OTHER, SELFPAY | PROVIDERS: Visit Provider Orthopaedic Surgery | DX: G56.01 Carpal tunnel syndrome, right upper limb (principal) | CPT/HCPCS: 64721 ==

== ENCOUNTER 2024-08-07 15:12 | Outpatient (AMB) | payer OTHER, SELFPAY ==
--- NOTE | 2024-08-07 15:14 | MHC.OFFVIS ---
Intake Visit Reasons: PO RT CTR 07/24/24 Intake Note: Kyler is a 43 year old right hand dominant male who presents today post operatively s/p right carpal tunnel release DOS: 07/24/24 w/ Dr Cleopatra Bravo. Sutures removed and steri strips applied. Patient reports he is having some discomfort and pain with some numbness at his incision site and at the base of his thumb on the palmar aspect. Denies drainage from site. Allergies No Known Allergies Allergy (Verified 08/07/24 15:21) HPI HPI PO RT CTR 07/24/24: Details: Kyler is a 43 year old right hand dominant male who presents today post operatively s/p right carpal tunnel release DOS: 07/24/24 w/ Dr Cleopatra Bravo. Sutures removed and steri strips applied. Patient reports he is having some discomfort and pain with some numbness at his incision site and at the base of his thumb on the palmar aspect. Denies drainage from site. [facility] Social History Alcohol intake: current Alcohol intake frequency: holidays/special occasions only Patient Tobacco Use Status: Current everyday Tobacco user Cigarette Packs Per Day: 1 Substance Use Type: Marijuana Current occupational status: disabled Current occupation: right hand dominant Review of Systems Const All systems reviewed & are unremarkable except as noted in HPI and below Physical Exam Const General: cooperative, healthy appearing and no acute distress Orientation/consciousness: patient oriented x3 HEENT Head: Yes normocephalic and Yes atraumatic Eyes EOM: EOMs intact bilaterally Resp Effort & Inspection: normal respiratory effort and able to speak in complete sentences Cardio Jugular venous distension: no JVD Skin General skin exam: turgor normal Rashes: no rashes Neuro General: patient oriented x3 Extrem Other: Evaluation of Right Upper Extremity: The patient is alert, oriented, and in no acute distress Neuro: Normal sensation in the median nerve distribution today in the bilateral hands in clinic No thenar or intrinsic wasting Good APB muscle belly firing and good finger cross Vascular: Cap refill brisk ROM: He can make a fist and extend all his digits Skin: Well approximated and well healing incision site noted over the volar right wrist No lacerations or abrasions. General: No Ecchymosis. No Erythema or evidence of infection. Psych Appearance: grossly normal Affect: normal affect Attitude: cooperative Assessment & Plan Assessment & Plan (1) Carpal tunnel syndrome on right: Code(s): G56.01 - Carpal tunnel syndrome, right upper limb Category: Medical (2) Numbness and tingling of left hand: Code(s): R20.0 - Anesthesia of skin; R20.2 - Paresthesia of skin Category: Medical Plan 1. Numbness and tingling of left hand Primarily in ulnar nerve distribution Symptoms intermittent, daily, worse at night Patient was referred for EMG and nerve conduction study for assessment of the health of the nerves of the left upper extremity Patient will follow-up after this study for results review and discussion of further treatment options if indicated Patient was amenable to this plan Status post right carpal tunnel release DOS 07/24/2024 Patient appears to be recovering well postoperatively Patient is educated about the typical recovery course At this time, patient was informed he will require no further acute postoperative follow-up with us, as he is recovering very well Patient was amenable to this plan Orders: Orders NE electromyogram (EMG) Today R20.0 - Anesthesia of skin, R20.2 - Paresthesia of skin NE nerve conduction velocity Today R20.0 - Anesthesia of skin, R20.2 - Paresthesia of skin Coding Level of Care Code Est Pt Level 3 (61771) Diagnoses Carpal tunnel syndrome on right G56.01 Numbness and tingling of left hand R20.0; R20.2
== END 2024-08-07 15:29 | disposition home or self-care (01) ==
LOC: HO.HOS 15:13
DX: G56.01 Carpal tunnel syndrome, right upper limb (principal); R20.0 Anesthesia of skin; R20.2 Paresthesia of skin
CPT/HCPCS: 99024

== ENCOUNTER → 2024-08-07 15:12 | Outpatient (BNVA) | payer OTHER, SELFPAY | DX: Z47.89 Encounter for other orthopedic aftercare (principal); R20.0 Anesthesia of skin; R20.2 Paresthesia of skin; Z98.890 Other specified postprocedural states | CPT/HCPCS: 99212 ==

== ENCOUNTER 2024-09-14 13:18 | Outpatient (REF) | payer OTHER, SELFPAY ==
--- NOTE | 2024-09-14 13:21 | EMG_ITS ---
Chief complaint: Left 2nd and 3rd digit numbness, denies locking. Previously seen for EMG right upper extremity, status post right CTR now. Numbness resolved. But still complaining of locking of right 4th and 5th digits. Reason for referral: Evaluate for left Carpal Tunnel Syndrome Referred by: Bayron JUAREZ Procedure done: Left upper extremity NCS/EMG Precautions and/or limitations: None The limb temperature was monitored continuously and remained between 32-36 degrees C during the performance of the NCS. Ulnar motor NCS was performed with moderate elbow flexion between 70-90 degrees, with across-elbow distance of 10 cm. Nerve Conduction Studies Anti Sensory Summary Table ?Stim Site NR Onset (ms) Norm Onset (ms) Peak (ms) Norm Peak (ms) O-P Amp (?V) Norm O-P Amp Site1 Site2 Delta-0 (ms) Dist (cm) Refugio (m/s) Norm Refugio (m/s) Left Median Anti Sensory (2nd Digit) Wrist ? 3.1 4.1 <3.6 34.9 >10 Wrist 2nd Digit 3.1 14.0 45 Left Radial Anti Sensory (Thumb) Forearm ? 1.9 2.3 <3.1 18.6 Forearm Thumb 1.9 0.0 Left Ulnar Anti Sensory (5th Digit) Wrist ? 2.8 3.7 <3.7 27.3 >15.0 Wrist 5th Digit 2.8 14.0 50 Motor Summary Table ?Stim Site NR Onset (ms) Norm Onset (ms) O-P Amp (mV) Norm O-P Amp iAmp (mV) Amp (1st) (%) Site1 Site2 Delta-0 (ms) Dist (cm) Refugio (m/s) Norm Refugio (m/s) Left Median Motor (Abd Poll Brev) Wrist ? 4.8 <3.9 10.6 >4.5 15.0 100.0 Elbow Wrist 4.4 23.0 52 >45 Elbow ? 9.2 10.1 13.9 95.3 Left Ulnar Motor (Abd Dig Minimi) Wrist ? 3.4 <3.0 4.2 >5 5.4 100.0 B Elbow Wrist 4.1 21.5 52 >45 B Elbow ? 7.5 3.9 5.1 92.9 A Elbow B Elbow 2.0 10.0 50 >45 A Elbow ? 9.5 3.7 5.0 88.1 Left Ulnar Motor (FDI) Wrist ? 5.2 <3.0 5.5 >5 8.6 100.0 B Elbow Wrist 4.3 22.0 51 >45 B Elbow ? 9.5 5.3 8.3 96.4 A Elbow B Elbow 1.7 10.0 59 >45 A Elbow ? 11.2 4.9 7.3 89.1 Right Ulnar Motor (FDI) Wrist ? 4.8 <3.0 9.3 >5 11.5 100.0 B Elbow Wrist 4.5 23.0 51 >45 B Elbow ? 9.3 9.1 11.2 97.8 A Elbow B Elbow 1.4 10.0 71 >45 A Elbow ? 10.7 8.7 11.0 93.5 EMG ?Side Muscle Nerve Root Ins Act Fibs Psw Amp Dur Poly Recrt Int Pat Comment Left 1stDorInt Ulnar C8-T1 Nml Nml Nml Nml Nml 0 Nml Complete Left FlexCarRad Median C6-7 Nml Nml Nml Nml Nml 0 Nml Complete Left Biceps Musculocut C5-6 Nml Nml Nml Nml Nml 0 Nml Complete Left Triceps Radial C6-7-8 Nml Nml Nml Nml Nml 0 Nml Complete Left Deltoid Axillary C5-6 Nml Nml Nml Nml Nml 0 Nml Complete Paraspinal EMG ?Side Muscle Nerve Root Ins Act Fibs Psw Comment Right Cervical Upper Rami Nml Nml Nml Right Cervical Mid Rami Nml Nml Nml Right Cervical Lower Rami Nml Nml Nml Left Cervical Upper Rami Nml Nml Nml Left Cervical Mid Rami Nml Nml Nml Left Cervical Lower Rami Nml Nml Nml FINDINGS: Left median motor nerve showed prolonged distal latency, normal amplitude and conduction velocity. Left median sensory nerve showed prolonged peak latencies. Left ulnar motor nerve, recording at ADM, showed prolonged distal latency, small amplitude but only slight slowing of conduction velocity across the elbow. When recording at FDI, also showed prolonged distal latencies but amplitude is normal. No conduction block across the elbow. Went ahead checking right ulnar motor nerve, recording at FDI, also showed prolonged distal latencies, with normal amplitude and conduction velocity. Left ulnar sensory nerve within normal. Left radial sensory nerve within normal. Concentric needle EMG was performed in selected muscles of the left upper extremity and bilateral cervical paraspinals. Study did not reveal signs of electric abnormalities as shown in the table above. IMPRESSION: 1. This is an abnormal study. 2. There is electrodiagnostic evidence for left moderate-severe median neuropathy at the wrist, consistent with carpal tunnel syndrome. 3. There is no electrodiagnostic evidence for brachial plexopathy, or cervical radiculopathy. CLINICAL COMMENT: Findings of Carpal Tunnel Syndrome, left, consistent with his symptoms. Can not fully rule out a chronic ulnar neuropathy at the elbow, left worse than right. Denies ulnar neuropathy symptoms on the left. However he continues to have symptoms on right 4th and 5th digits. Thank you for your kind referral. Renee Sherwood MD, RITESH Board Certified, [place] [employer] and Rehabilitation (ABPMR) Board Certified, [place] Board of Electrodiagnostic Medicine (ABEM) CODIN [phone] MTDD
--- OUTSIDE RECORDS SUMMARY | 2024-09-14 13:38 | XMS_ITS | Clinical Summary ---
Author Organization Patient Business Ser [facility] [place] Address [address] [place] [address] Care Team Providers Care Loader Demolder Name Role Phone Physician, No Pcp Primary Care Provider Unavaila ble Allergies No known active allergies Encounters Date Type Department Care Team Description 07/31/2024 6:23 PM EDT - 07/31/2024 7:11 PM EDT Emergency [facility] Emergency [address] [place] [phone] Foreign body, eye, right, initial encounter (Primary Dx) Discharge Disposition: Home or Self Care from Last 3 Months Surgical History Surgery Date Site/Laterality Comments HERNIA REPAIR PROCEDURE: HISTORICAL HERNIA REPAIR/ING APPENDECTOMY PROCEDURE: HISTORICAL APPENDECTOMY WISDOM TOOTH EXTRACTION PROCEDURE: HISTORICAL WISDOM TEETH EXTRACTION HAND SURGERY PROCEDURE: [place] UNLISTED PROCEDURE HANDS/FINGERS Medical History Medical History Date Comments Bronchitis, chronic (CMS/HCC V24, CMS/HCC V28) DX:Bronchitis, chronic (HCC) Family History Medical History Relation [...] Sign Reading Time Taken Comments Blood Pressure 143/97 07/31/2024 6:11 PM EDT Pulse 82 07/31/2024 6:11 PM EDT Temperature 36.9 ??C (98.4 ??F) 07/31/2024 6:11 PM ED T Respiratory Rate 18 07/31/2024 6:11 PM EDT Oxygen Saturation 98% 07/31/2024 6:11 PM EDT Inhaled Oxygen Concentration - - Weight 92.8 kg (204 lb 8 oz) 07/31/2024 6:11 PM EDT Height 193 cm (6' 4 ) 07/31/2024 6:11 PM EDT Body Mass Index 24.89 07/31/2024 6:11 PM EDT Plan of Treatment Health Maintenance Due Date Last Done Comments Hepatitis A Vaccines (1 of 2 - Risk 2-dose series) 1997 Hepatitis B Vaccines (1 of 3 - 19+ 3-dose series) 1997 Pneumococcal Vaccine: Pediatrics (0 to 5 Years) and At-Risk Patients (6 to 64 Years) (2 of 2 - PCV) 11/03/2017 11/03/2016 Cholesterol Screening (Lipid Panel) 04/14/2022 Colorectal Cancer Screening: Colonoscopy 04/14/2022 Depression Screening 04/14/2022 HIV Screening 04/14/2022 Hepatitis C Screening 04/14/2022 Social Influencers of Health Screening 04/14/2022 COVID-19 Vaccine (2023-2 5 season) 2024 Influenza Vaccine (Season Ended) 2025 03/03/2010 DTaP,Tdap,and Td Vaccines (3 - Td [...] age to complete this topic Meningococcal B Vaccine Aged Out No l onger eligible based on patient's age to complete this topic RSV Immunization Patients Under 20 months Aged Out No longer eligible b ased on patient's age to complete this topic Varicella Vaccines Aged Out No longer eligible based on patient's age to complete this topic [place] [address] [place] [address] PLAN Care Teams Loader Demolder Relationship Specialty Start Date End Date Physician, No Pcp PCP - General 07/31/24
== END 2024-09-14 13:19 | disposition home or self-care (01) ==
LOC: HO.NEURO 13:18
DX: R20.0 Anesthesia of skin (principal); R20.2 Paresthesia of skin
CPT/HCPCS: 95885; 95886; 95909

== ENCOUNTER → 2024-09-14 13:21 | Outpatient (BNV) | payer OTHER, SELFPAY | PROVIDERS: Visit Provider Physical Medicine & Rehabilitation | DX: G56.02 Carpal tunnel syndrome, left upper limb (principal); R20.0 Anesthesia of skin; R20.2 Paresthesia of skin | CPT/HCPCS: 95885; 95886; 95911 ==

== ENCOUNTER 2024-09-26 11:22 | Outpatient (AMB) | payer OTHER, SELFPAY ==
--- NOTE | 2024-09-26 11:33 | MHC.OFFVIS ---
Vital Signs 09/26/24 11:36 Height 6 ft 4 in Weight 205 lb BMI 25.0 Handedness Right Intake Visit Reasons: OV- Left hand EMG review Intake Note: Kyler is a 44 year old right hand dominant male who presents today for a EMG review of his left hand. He states that he is having increased pain since his EMG. IMPRESSION (Left hand) : 1. This is an abnormal study. 2. There is electrodiagnostic evidence for left moderate-severe median neuropathy at the wrist, consistent with carpal tunnel syndrome. 3. There is no electrodiagnostic evidence for brachial plexopathy, or cervical radiculopathy. Allergies No Known Allergies Allergy (Verified 09/26/24 11:34) HPI HPI OV- Left hand EMG review: Details: Kyler is a 44 year old right hand dominant male who presents today for a EMG review of both hands. He states that he is having increased pain since his EMG. IMPRESSION (Left hand) : 1. This is an abnormal study. 2. There is electrodiagnostic evidence for left moderate-severe median neuropathy at the wrist, consistent with carpal tunnel syndrome. 3. There is no electrodiagnostic evidence for brachial plexopathy, or cervical radiculopathy. IMPRESSION right hand: 1. This is an abnormal study. 2. There is electrodiagnostic evidence for left moderate-severe median neuropathy at the wrist, consistent with carpal tunnel syndrome. 3. There is no electrodiagnostic evidence for brachial plexopathy, or cervical radiculopathy. CLINICAL COMMENT: Findings of Carpal Tunnel Syndrome, left, consistent with his symptoms. Can not fully rule out a chronic ulnar neuropathy at the elbow, left worse than right. Denies ulnar neuropathy symptoms on the left. However he continues to have symptoms on right 4th and 5th digits. Thank you for your kind referral. Renee Sherwood MD, RITESH [facility] Social History Alcohol intake: current Alcohol intake frequency: holidays/special occasions only Patient Tobacco Use Status: Current everyday Tobacco user Cigarette Packs Per Day: 1 Substance Use Type: Marijuana Current occupational status: disabled Current occupation: right hand dominant Review of Systems Const All systems reviewed & are unremarkable except as noted in HPI and below Physical Exam Vital Signs: BMI result Body Mass Index 25.0 Const General: cooperative, healthy appearing and no acute distress Orientation/consciousness: patient oriented x3 HEENT Head: Yes normocephalic and Yes atraumatic Eyes EOM: EOMs intact bilaterally Resp Effort & Inspection: normal respiratory effort and able to speak in complete sentences Cardio Jugular venous distension: no JVD Skin General skin exam: turgor normal Rashes: no rashes Neuro General: patient oriented x3 Extrem Other: Evaluation of Right Upper Extremity: The patient is alert, oriented, and in no acute distress Neuro: Normal sensation in the median nerve distribution today in the bilateral hands in clinic Diminished sensation in the ulnar nerve distribution of the right hand No thenar or intrinsic wasting Good APB muscle belly firing and good finger cross Vascular: Cap refill brisk ROM: He can make a fist and extend all his digits Skin: Well approximated and well healing incision site noted over the volar right wrist No lacerations or abrasions. General: No Ecchymosis. No Erythema or evidence of infection. Psych Appearance: grossly normal Affect: normal affect Attitude: cooperative Assessment & Plan Assessment & Plan (1) Bilateral carpal tunnel syndrome: Code(s): G56.03 - Carpal tunnel syndrome, bilateral upper limbs Category: Medical (2) Cubital tunnel syndrome, bilateral: Code(s): G56.23 - Lesion of ulnar nerve, bilateral upper limbs Category: Medical Plan 1. Cubital tunnel syndrome, right Symptoms intermittent, daily, worse at night I educated the patient about the condition. I discussed both operative and nonoperative treatment options. The patient would like to proceed with surgery. The risks and benefits of operative treatment were discussed with the patient and the patient wishes to proceed with surgery. These risks include, but are not limited to, risk of damage to blood vessels, nerves, tendons, infection, recurrence, incomplete relief of preoperative symptoms, persistent pain, possible need for further surgery, and the risks associated with regional blocks and/or anesthesia. Plan is to take the patient to the operating room at some point in the next few weeks for the following procedures: 1. Right cubital tunnel release under general All of the preoperative paperwork including the consent was discussed today. All of the patient's questions were answered in the clinic today. The patient understands that they will be in contact with our surgical physician assistant to discuss scheduling their procedure. Patient denies diabetes, blood thinners, asthma, heart issues, lung issues, kidney issues Patient does report currently smoking approximately 1 pack of cigarettes per day Coding Level of Care Code Est Pt Level 4 (06914) Diagnoses Bilateral carpal tunnel syndrome G56.03 Cubital tunnel syndrome, bilateral G56.23
[2024-09-26 11:36] VITALS: BMI 25.0
--- OUTSIDE RECORDS SUMMARY | 2024-09-26 12:24 | XMS_ITS | Clinical Summary ---
Author Organization Patient Business Ser [facility] [place] Address [address] [place] [address] Care Team Providers Care Operating Systems Programmer Name Role Phone Physician, No Pcp Primary Care Provider Unavaila ble Allergies No known active allergies Encounters Date Type Department Care Team Description 07/31/2024 6:23 PM EDT - 07/31/2024 7:11 PM EDT Emergency [facility] Emergency [address] [place] [phone] Foreign body, eye, right, initial encounter (Primary Dx) Discharge Disposition: Home or Self Care from Last 3 Months Surgical History Surgery Date Site/Laterality Comments HERNIA REPAIR PROCEDURE: HISTORICAL HERNIA REPAIR/ING APPENDECTOMY PROCEDURE: HISTORICAL APPENDECTOMY WISDOM TOOTH EXTRACTION PROCEDURE: HISTORICAL WISDOM TEETH EXTRACTION HAND SURGERY PROCEDURE: [place] UNLISTED PROCEDURE HANDS/FINGERS Medical History Medical History [...] patient's age to complete this topic Insurance [place] [address] PLAN Care Teams Operating Systems Programmer Relationship Specialty Start Date End Date Physician, No Pcp PCP - General 07/31/24
== END 2024-09-26 12:02 | disposition home or self-care (01) ==
LOC: HO.HOS 11:23
DX: G56.03 Carpal tunnel syndrome, bilateral upper limbs (principal); G56.23 Lesion of ulnar nerve, bilateral upper limbs
CPT/HCPCS: 99214

== ENCOUNTER → 2024-09-26 11:22 | Outpatient (BNVA) | payer OTHER, SELFPAY | DX: G56.03 Carpal tunnel syndrome, bilateral upper limbs (principal); G56.23 Lesion of ulnar nerve, bilateral upper limbs; M79.642 Pain in left hand; M79.641 Pain in right hand | CPT/HCPCS: 99212 ==

== ENCOUNTER 2024-10-04 05:47 | Day surgery (SDC) | payer OTHER, SELFPAY ==
--- OUTSIDE RECORDS SUMMARY | 2024-09-27 08:40 | XMS_ITS | Clinical Summary ---
Author Organization Patient Business Ser [facility] [place] Address [address] [place] [address] Care Team Providers Care Fermentation Operator Name Role Phone Physician, No Pcp Primary Care Provider Unavaila ble Allergies No known active allergies Encounters Date Type Department Care Team Description 07/31/2024 6:23 PM EDT - 07/31/2024 7:11 PM EDT Emergency [facility] Emergency [address] [place] [phone] Foreign body, eye, right, initial encounter (Primary Dx) Discharge Disposition: Home or Self Care from Last 3 Months Surgical History Surgery Date Site/Laterality Comments HERNIA REPAIR PROCEDURE: HISTORICAL HERNIA REPAIR/ING APPENDECTOMY PROCEDURE: HISTORICAL APPENDECTOMY WISDOM TOOTH EXTRACTION PROCEDURE: HISTORICAL WISDOM TEETH EXTRACTION HAND SURGERY PROCEDURE: [place] UNLISTED PROCEDURE HANDS/FINGERS Medical History Medical History [...] patient's age to complete this topic [place] [address] [place] [address] PLAN Care Teams Fermentation Operator Relationship Specialty Start Date End Date Physician, No Pcp PCP - General 07/31/24
--- NOTE | 2024-10-03 10:08 | P.CONAN_ITS ---
Documented by User: Flores Bernal NP 10/03/24 10:09 HPI - Anesthesia Eval Consult details Narrative: 44yo M for Right Cubital Tunnel Release s/p carpal tunnel 07/2024 under local anesthesia [facility] Active Problems Active Problems: All Active Problems Cubital tunnel syndrome, bilateral (Acute) Bilateral carpal tunnel syndrome (Acute) Numbness and tingling of left hand (Acute) Epicondylitis, lateral, right (Acute) Carpal tunnel syndrome on right (Acute) Social History Social History Are you a primary career advisor to a significant other at home: No Do you presently have visiting nurse or other home services: No Alcohol intake: current Alcohol intake frequency: does not drink Patient Tobacco Use Status: Current everyday Tobacco user Cigarette Packs Per Day: 1 Cigarettes Per Day: 20.0 Use of substances other than those prescribed or required for medical reasons: Yes Substance Use Type: Marijuana Substance Use Frequency: Daily Have you been hit, kicked, punched, or otherwise hurt by someone within the past year? If so, by whom?: No Are you DNR?: No Advance Directives: No Advance Directives Information Provided: Yes Poor oral hygiene: No Current occupational status: disabled Current occupation: right hand dominant Meds Allergies Allergy/AdvReac Type Severity Reaction Status Date / Time No Known Allergies Allergy Verified 10/04/24 06:10 Active Medications: Current Medications Cefazolin Sodium/Dextrose (Ancef) 2 gm in 50 mls @ 100 mls/hr IV PREOP ONE Stop: 10/04/24 07:28 Home Medications ?Medication ?Instructions ?Recorded ?Confirmed ?Last Taken ?Type No Known Home Meds 10/04/24 10/04/24 Unknown History Assessment and Plan Assessment Anesthesia Assessment: Chart Reviewed Documented by User: Olive Soliman MD 10/04/24 07:35 [facility] Family History Family history of problems with anesthesia: No Surgical History History of Problems with Anesthesia: No Social History Social History Are you a primary career advisor to a significant other at home: No Do you presently have visiting nurse or other home services: No Alcohol intake: current Alcohol intake frequency: does not drink Patient Tobacco Use Status: Current everyday Tobacco user Cigarette Packs Per Day: 1 Cigarettes Per Day: 20.0 Use of substances other than those prescribed or required for medical reasons: Yes Substance Use Type: Marijuana Substance Use Frequency: Daily Have you been hit, kicked, punched, or otherwise hurt by someone within the past year? If so, by whom?: No Are you DNR?: No Advance Directives: No Advance Directives Information Provided: Yes Poor oral hygiene: No Current occupational status: disabled Current occupation: right hand dominant Meds Allergies Allergy/AdvReac Type Severity Reaction Status Date / Time No Known Allergies Allergy Verified 10/04/24 06:10 Home Medications ?Medication ?Instructions ?Recorded ?Confirmed ?Last Taken ?Type No Known Home Meds 10/04/24 10/04/24 Unknown History Exam Airway Mallampati Class: II TM Dist: >3cm Neck ROM: Full Heart: rrr Lungs: cta Assessment and Plan Assessment Anesthesia Assessment: Anesthesia Plan Discussed Final Anesthetic Review Family History of Problems with Anesthesia: No History of Problems with Anesthesia: No NPO: Yes ASA Class: II Final Preanesthetic Review: No Changes in Pt Med Stat, Meds/Allgs Chart Reviewed, Consent Obtained/Reviewed and Anes Risks/Benef Reviewed Patient Risk: Low Procedure Risk: Low Anesthetic Plan Anesthetic Plan: GA Disposition: Standard PACU
[2024-10-04] VITALS (10 sets, daily range): BP systolic 105–133; BP diastolic 63–69; PULSE 50–75; RESP 12–20; TEMP 36.1–36.9; O2SAT 95–98; BMI 24.4
[2024-10-04] MEDS: Lactated Ringers 1,000 ML 100 ML IVCONT (06:33)
--- NOTE | 2024-10-04 07:43 | MHC.SHP ---
Pre-Procedural Eval Section A - 24 Hr Update-Section A only Date of Service: 10/04/24 The patient is an INPATIENT: No Changes since office visit: No Cold of Flu in the past 2 weeks, No New Medical Problems, No Changes in Medication and No Patient answered all questions The patient has been examined within 24 hours of the surgical procedure. The History & Physical has been completed within 30 days and I have reviewed it.: Yes Section B - Complete if H&P > 30 days Chief Complaint: Lesion of ulnar nerve, right upper limb Allergies: Allergies Allergy/AdvReac Type Severity Reaction Status Date / Time No Known Allergies Allergy Verified 10/04/24 06:10 Plan I have reviewed the history and physical and performed a pertinent physical examination on my patient. No changes have occurred unless specified. Time Spent With Patient Time: Total time managing care of this patient today ____ minutes.
--- NOTE | 2024-10-04 07:45 | W.PM.OPN ---
Operative Note Operative Note Date of Service: 10/04/24 Narrative: Operative Note Narrative: Preop diagnosis: 1. Right Cubital tunnel syndrome Postop diagnosis: Same Procedure: 1. Right Cubital Tunnel Release Surgeon: Cleopatra Bravo MD Oil Derrick Operator: Bayron JUAREZ Anesthesia: General Anesthesia Findings: Mild Thickening and fibrosis about the ulnar nerve at the cubital tunnel Implants: none Tourniquet time: 21 minutes EBL: 5.0 ml Specimen: none Drains: None Complications: None Disposition: Brought to the recovery room in stable condition Plan: Follow-up in 10-14 days for wound check, and suture removal Indications: The patient is 44 years old with right cubital tunnel syndrome . The risks and benefits of operative treatment, including but not limited to risk of damage to blood vessels, nerves, tendons, infection, recurrence, persistent pain or numbness, incomplete resolution of preoperative symptoms, or need for further surgery were discussed with the patient and they wished to proceed with surgery. Procedure: Once consent was obtained patient was brought back to the operating suite and placed in the operating table in a supine position. Perioperative antibiotics and anesthesia was administered by the anesthesia team. The limb was prepped and draped in a standard surgical fashion, and a sterile tourniquet applied to the proximal aspect of the right upper extremity. The limb was elevated exsanguinated with Esmarch bandage and the tourniquet inflated to 250 mm of mercury for a total tourniquet time of 21 minutes. A 6 cm gently curved but longitudinally oriented incision was made centered over the cubital tunnel of the right upper extremity. Incision was made through the skin to the subcutaneous tissues using a # 15 Blade. I then dissected down to the level of the medial epicondyle and the cubital tunnel using tenotomy scissors. Care was taken to protect the medial antebrachial cutaneous nerve. The ulnar nerve was identified just posterior to the medial intermuscular septum. The ulnar nerve was released in a proximal to distal direction using tenotomy in iris scissors while directly visualizing and protecting the ulnar nerve. Thickening and fibrosis was appreciated about the ulnar nerve as it passed through the cubital tunnel. The ulnar nerve was assessed as I passed the elbow through full flexion and extension and was found to remain stable within its groove. At this point the tourniquet was deflated and hemostasis obtained with a brief period of local pressure and bipolar electrocautery. The wound was copiously irrigated with normal saline. The subcutaneous layer was closed with 4-0 Vicryl suture, and the skin edges were reapproximated with 5-0 nylon suture. The wound was infiltrated with some 1% lidocaine with epinephrine for postop pain control and sterile dressings were applied. The patient appears to have tolerated the procedure well and with no complications. All digits were well vascularized at the conclusion of the case.
[2024-10-04] MEDS: ceFAZolin Sodium/Dextrose,Iso 2 GM/50 ML PIGGYBACK IV (07:50)
[2024-10-04] MEDS: ondansetron HCL 4 MG/2 ML VIAL IVPUSH (09:10)
[2024-10-04] MEDS: Haloperidol Lactate 5 MG/ML VIAL 1 MG IVPUSH (09:35)
== END 2024-10-04 10:57 | disposition home or self-care (01) ==
PROVIDERS: Visit Provider Orthopaedic Surgery
PROC: (CPT 64718; principal; 2024-10-04 07:30)
DX: G56.21 Lesion of ulnar nerve, right upper limb (principal); F17.210 Nicotine dependence, cigarettes, uncomplicated; F12.90 Cannabis use, unspecified, uncomplicated
CPT/HCPCS: 64718; J0131; J0690; J1100; J1630; J2003; J2004; J2250; J2405; J2704; J2795; J3010

== ENCOUNTER → 2024-10-04 05:47 | Outpatient (BNV) | payer OTHER, SELFPAY | PROVIDERS: Visit Provider Orthopaedic Surgery | DX: G56.21 Lesion of ulnar nerve, right upper limb (principal) | CPT/HCPCS: 64718 ==

== ENCOUNTER 2024-10-17 13:27 | Outpatient (AMB) | payer OTHER, SELFPAY ==
--- OUTSIDE RECORDS SUMMARY | 2024-10-17 13:41 | XMS_ITS | Clinical Summary ---
Author Organization Patient Business Ser [facility] [place] Address [address] [place] [address] Care Team Providers Care Pipe Coverer Helper Name Role Phone Physician, No Pcp Primary Care Provider Unavaila ble Allergies No known active allergies Encounters Date Type Department Care Team Description 07/31/2024 6:23 PM EDT - 07/31/2024 7:11 PM EDT Emergency [facility] Emergency [address] [place] [phone] Foreign body, eye, right, initial encounter (Primary Dx) Discharge Disposition: Home or Self Care from Last 3 Months Surgical History Surgery Date Site/Laterality Comments HERNIA REPAIR PROCEDURE: HISTORICAL HERNIA REPAIR/ING APPENDECTOMY PROCEDURE: HISTORICAL APPENDECTOMY WISDOM TOOTH EXTRACTION PROCEDURE: HISTORICAL WISDOM TEETH EXTRACTION HAND SURGERY PROCEDURE: [place] UNLISTED PROCEDURE HANDS/FINGERS Medical History Medical History [...] patient's age to complete this topic [place] [address] [place] [address] PLAN Care Teams Pipe Coverer Helper Relationship Specialty Start Date End Date Physician, No Pcp PCP - General 07/31/24
--- NOTE | 2024-10-17 13:42 | A.OFFVIS_ITS ---
Intake Visit Reasons: PO RT Cubital 10/04/24 AR Intake Note: Kyler 44 yr old male presents today for his post op visit for his right Cubital tunnel release done with Dr Bravo on 10/04/24. Sutures removed and steri strips applied. States his symptoms have improved. Allergies No Known Allergies Allergy (Verified 10/17/24 13:47) HPI HPI PO RT Cubital 10/04/24 AR: Details: Kyler is a 44 year old right hand dominant man who returns S/P right cubital tunnel release, DOS: 10/04/24. He is S/P right carpal tunnel release, DOS: 07/24/24. He says he is doing well and his sensation has improved following surgery. He says he has normal sensation to all digits of his right hand, In regards to the left hand, he says he has intermittent but daily numbness in all his digits, including his small finger. He would like to discuss surgery for his left hand. [facility] Social History Are you a primary post acute care registered nurse to a significant other at home: No Do you presently have visiting nurse or other home services: No Alcohol intake: current Alcohol intake frequency: does not drink Patient Tobacco Use Status: Current everyday Tobacco user Cigarette Packs Per Day: 1 Cigarettes Per Day: 20.0 Substance Use Type: Marijuana Current occupational status: disabled Current occupation: right hand dominant Review of Systems Const All systems reviewed & are unremarkable except as noted in HPI and below Physical Exam Const General: no acute distress and alert Orientation/consciousness: patient oriented x3 Neuro General: patient oriented x3 Extrem Other: Evaluation of Right Upper Extremity: The patient is alert, oriented, and in no acute distress Neuro: Sensation intact to the tips of all digits of the right hand Vascular: Cap refill brisk ROM: He can make a fist and extend all his digits Nerve Conduction Study: Left-side IMPRESSION: 1. This is an abnormal study. 2. There is electrodiagnostic evidence for left moderate-severe median neuropathy at the wrist, consistent with carpal tunnel syndrome. 3. There is no electrodiagnostic evidence for brachial plexopathy, or cervical radiculopathy. CLINICAL COMMENT: Findings of Carpal Tunnel Syndrome, left, consistent with his symptoms. Can not fully rule out a chronic ulnar neuropathy at the elbow, left worse than right. Denies ulnar neuropathy symptoms on the left. However he continues to have symptoms on right 4th and 5th digits. Renee Sherwood MD, RITESH 09/14/24 Right-side IMPRESSION: 1. This is an abnormal study. 2. There is no electrodiagnostic evidence for ulnar neuropathy. 3. Incidentally, there is electrodiagnostic evidence for right moderate-severe median neuropathy at the wrist, consistent with carpal tunnel syndrome. 4. There is no electrodiagnostic evidence for brachial plexopathy or cervical radiculopathy. Renee Sherwood MD, RITESH 05/04/24 Psych Appearance: grossly normal Affect: normal affect Attitude: cooperative Assessment & Plan Assessment & Plan (1) Cubital tunnel syndrome on right: Code(s): G56.21 - Lesion of ulnar nerve, right upper limb Category: Medical (2) Carpal tunnel syndrome of left wrist: Code(s): G56.02 - Carpal tunnel syndrome, left upper limb Category: Medical (3) Cubital tunnel syndrome on left: Code(s): G56.22 - Lesion of ulnar nerve, left upper limb Category: Medical Plan Assessment & Plan: 1. Right cubital tunnel syndrome, S/p release DOS: 10/04/24 Pre-operative symptoms intermittent, but daily, worse at night Now with normal sensation, and good resolution of symptoms The patient appears to be doing well post-operatively I educated him about the post-operative course I explained the signs and symptoms of infection, if the patient develops any new or worsening erythema, drainage, pain, or warmth they should contact the clinic or attend the ED. I discussed activity modifications, he is to lift nothing heavier than a cellphone for the next 2 weeks He will perform gentle ROM exercises at home He should avoid any underwater activities for the next 5 days He should gently massage about the incision site to reduce the risk of hypersensitivity He can follow up prn 2. Right carpal tunnel syndrome, S/P release DOS: 07/24/24 Pre-operative symptoms intermittent, but daily, worse at night Now with normal sensation Doing well, no complaints 3. Left carpal tunnel syndrome, moderate-severe Symptoms intermittent, but daily, worse at night 4. Left cubital tunnel syndrome, based on history & PE Negative on NCS Symptoms intermittent, but daily, worse at night I educated him about these conditions I discussed operative and non-operative treatment options The patient would like to proceed with surgery I explained he has to wait 2-3 months to recover from his right cubital tunnel release, and he expressed understanding He will follow up in 2 months to see how he is doing, and discuss surgery again if he continues to have symptoms of numbness & tingling Scribed for Cleopatra Bravo MD by Talat Trevino medical transcription editor, on 10/17/24 at 1:50 PM, EST. Coding Level of Care Code Global (33276) Diagnoses Cubital tunnel syndrome on right G56.21 Carpal tunnel syndrome of left wrist G56.02 Cubital tunnel syndrome on left G56.22
== END 2024-10-17 14:11 | disposition home or self-care (01) ==
LOC: HO.HOS 13:31
PROVIDERS: Visit Provider Orthopaedic Surgery
DX: G56.21 Lesion of ulnar nerve, right upper limb (principal); G56.02 Carpal tunnel syndrome, left upper limb; G56.22 Lesion of ulnar nerve, left upper limb
CPT/HCPCS: 99024

== ENCOUNTER → 2024-10-17 13:27 | Outpatient (BNVA) | payer OTHER, SELFPAY | PROVIDERS: Visit Provider Orthopaedic Surgery | DX: G56.02 Carpal tunnel syndrome, left upper limb (principal); G56.22 Lesion of ulnar nerve, left upper limb; Z09 Encounter for follow-up examination after completed treatment for conditions other than malignant neoplasm; Z98.890 Other specified postprocedural states | CPT/HCPCS: 99212 ==

== ENCOUNTER 2025-02-23 19:35 | Emergency (ER) | payer OTHER, SELFPAY ==
--- NOTE | ~2025-02-23 | XR_ITS ---
CLINICAL HISTORY: R low back pain 3 views lumbar spine Comparison: None provided Findings: Normal vertebral body alignment. No acute fractures or dislocation. Mild multilevel spondylosis predominantly with facet arthropathy most notably at L4-L5 and L5-S1 levels. IMPRESSION: No acute findings. Mild multilevel spondylosis, predominantly with facet arthropathy at L4-L5 and L5-S1 levels. This document has been electronically signed by: Jaiden Dorantes MD on 02/23/2025 20:50:16
--- OUTSIDE RECORDS SUMMARY | 2025-02-23 15:44 | XMS_ITS | Encounter Summary ---
Author Organization [facility] [place] [address] Care Team Providers Care Card Hand Name Role Phone Physician, No Pcp Primary Care Provider Unavaila ble Reason for Visit * Reason Comments Foreign Body in Eye Encounter Details Date Type Department Care Team (Late st Contact Info) Description 02/23/2025 3:44 PM EDT - 02/23/2025 4:[address] [facility] Emergency [address] [place] [address] Abrasion of left cornea, initial encounter (Primary Dx) Discharge Disposition: Home or Self Care Social History Tobacco Use Types Packs/Day Years Used Date Smoking Tobacco: Every Day Cigarettes Smokeless Tobacco: Current Alcohol Use Standard Drinks/Week Comments Yes 0 (1 standard drink = 0.6 oz pur e alcohol) Sex and Gender Information Value Date Recorded Sex Assigned at Not on file Legal Sex Male 4:02 PM EST Gender Identity Not on file Sexual Orientation Not on file documented as of this encounter Last Filed Vital Signs Vital Sign Reading Time Taken Comments Blood Pressure 135/79 02/23/2025 3:26 PM EDT Pulse 76 02/23/2025 3:26 PM EDT Temperature 36.6 C (97.9 F) 02/23/2025 3:26 PM EDT Respiratory Rate 20 02/23/2025 3:26 PM EDT Oxygen Saturation 99% 02/23/2025 3:26 PM EDT Inhaled Oxygen Concentration - - Weight 102 kg (225 lb) 02/23/2025 3:26 PM EDT Height 193 cm (6' 4 ) 02/23/2025 3:26 PM EDT Body Mass Index 27.39 02/23/2025 3:26 PM EDT documented in this encounter Functional Status * Calculated C-SSRS Risk Score (Lifetime/Recent) Answer Date of Assessment Author No Risk Indicated 02/23/2025 3:29 PM EDT Vandana Vences RN * [place] Suicide Severity Rating Scale (Screener/Recent Self-Report) Question Answer Date of Assessment Author 1. Wish to be (Past 1 Month) No 025 3:29 PM EDT Vandana Vences RN 2. Non-Specific Active Suici lisbet Thoughts (Past 1 Month) No 02/23/2025 3:29 PM EDT Vandana Vences RN 6. Suicidal Behavior (Lifetime) No 3:29 PM EDT Vandana Vences RN documented as of this encounter Discharge Instructions * Discharge Instructions* LARRY Soto - 02/23/2025 3:57 PM EDT You have a corneal abrasion (scratch to the cornea of your eye) Use the topical antibiotic as prescribed. Take ibuprofen (motrin or advil) 600mg every 6-8 hours as needed for pain. Return immediately for increased eye pain, redness, or difficulty with vision. Most abrasions heal without any long-term problems; however, if infection were to develop, you may risk loss of your vision. Please see the kosher inspector in follow-up within 48 hours if your symptoms are not significantly improved or worsen at any time. If you are unable to see an kosher inspector please return here to be reevaluated. documented in this encounter Medications at Time of Discharge erythromycin 5 mg/gram (0.5 %) ophthalmic ointment Place a 1/2 inch ribbon of ointment into the lower eyelid. 3.5 g 02/23/2025 03/05/2025 documented as of this encounter Ordered Prescriptions Prescription Sig Dispense Quantity Refills Last Filled Start Date End Date erythromycin 5 mg/gram (0.5 %) ophthalmic ointment Place a 1/2 inch ribbon of ointment into the lower eyelid. 3.5 g 02/23/2025 documented in this encounter Discharge Disposition Disposition Code Departure Means Destination Comment s Home or Self Care documented in this encounter Progress Notes * Vandana Vences RN - 02/23/2025 3:28 PM EDT Last night he started having pain in his left eye. He woke up today with drainage in that eye. documented in this encounter Plan of Treatment Not on file documented as of this encounter Visit Diagnoses Diagnosis Abrasion of left cornea, initial encounter- Primary documented in this encounter Administered Medications Inactive Administered Medications - up to 3 most recent administrations Medication Order MAR Action Action Date Dose Rate Site fluorescein 1 mg ophthalmic strip 1 strip 1 strip, Left Eye, Once, On 02/23/25 at 1541, For 1 dose Given 02/23/2025 3:43 PM EDT 1 strip proparacaine (ALCAINE) 0.5 % ophthalmic solution 2 drop 2 drop, Left Eye, Once PRN Procedure, eye exam, Starting on 02/23/25 at 1540, For 1 dose Given 02/23/2025 3:43 PM EDT 2 drops documented in this encounter Active and Recently Administered Medications Times are shown in EDT. Scheduled Medication Order 02/21/2025 02/22/2025 02/23/2025 fluorescein 1 mg ophthalmic strip 1 strip (COMPLETED) 1 strip, Left Eye, Once, On 02/23/25 at 1541, For 1 dose 1543 (Given - Provid er: Betsy Munoz RN) PRN Medication Order 02/21/2025 02/22/2025 02/23/2025 proparacaine (ALCAINE) 0.5 % ophthalmic solution 2 drop (COMPLETED) 2 drop, Left Eye, Once PRN Procedure, eye exam, Starting on 02/23/25 at 1540, For 1 dose 1543 (Given - Provid er: Betsy Munoz RN) documented in this encounter Care Teams Card Hand Relationship Specialty Start Date End Date Physician, No Pcp PCP - General 07/31/24 documented as of this encounter
[2025-02-23 19:40] VITALS: BP 138/71; PULSE 80; RESP 18; TEMP 36.6; O2SAT 97; BMI 24.0
--- NOTE | 2025-02-23 19:40 | ED.GENADULT ---
HPI - General Adult General Chief complaint: General Medical Stated complaint: left eye irritated,back pain Time Seen by Provider: 02/23/25 20:55 Source: patient Limitations: no limitations History of Present Illness ED Provider: Daniela Arnold PA-C HPI narrative: 44-year-old male with a history of chronic back pain presents with multiple complaints. Patient states he has a cat, he thinks he has hair or cat litter in the left eye. He woke up this morning with discharge that was crusted. He was seen at [facility] prior to arrival, the debris was removed, the patient is still having irritation. Patient states they sent medication to his pharmacy but the pharmacy is closed. Denies change in symptoms. Patient states he does not use contact lenses he is not diabetic. Patient also complains of exacerbation of his chronic low back pain. Pain over right side with radiation down right lower extremity. Associated paresthesias. Denies weakness of lower extremity, urinary retention or bowel incontinence. Patient states he has a very physical job and performs a great deal of heavy lifting on a regular basis. Related Data Previous Rx's ?Medication ?Instructions ?Recorded hydrocodone 5 mg-acetaminophen 325 1 tab PO Q6H PRN pain #15 tabs 10/04/ mg tablet erythromycin 5 mg/gram (0.5 %) eye 0.5 inch ophthalmic-Left QID 5 02/23/25 ointment days #3.5 grams ketorolac 0.5 % eye drops (Acular) 1 drp ophthalmic (eye) QID PRN 02/23/25 pain #5 mL ketorolac 10 mg tablet 10 mg PO Q6H PRN pain #20 tabs 02/23/25 methocarbamol 750 mg tablet 1,500 mg (2 x 750 mg) PO Q8H PRN 02/23/25 pain, moderate #24 tabs methylprednisolone 4 mg tablets in 4 mg PO QAM #21 ea 02/23/25 a dose pack (Medrol (Sherman)) Allergies Allergy/AdvReac Type Severity Reaction Status Date / Time No Known Allergies Allergy Verified 02/23/25 19:42 Review of Systems Review of Systems: Yes all other systems are reviewed and are negative Constitutional: Constitutional: Denies fatigue and Denies fever(s) Eyes: Eyes: Reports eye discharge and Reports eye pain Cardiovascular: Cardiovascular: Denies chest pain and Denies dyspnea Respiratory: Respiratory: Denies dyspnea Gastrointestinal: Gastrointestinal: Denies nausea and Denies vomiting Musculoskeletal: Musculoskeletal: Reports back pain, Denies muscle weakness, Denies numbness, Reports radiating pain into limb and Reports tingling Neurologic: Denies numbness and Reports tingling Endocrine: Endocrine: Denies fatigue PMFSH Past Medical History Attestation statement: The following information was validated with the patient. Social History Social History Are you a primary home health care case manager to a significant other at home: No Do you presently have visiting nurse or other home services: No Alcohol intake: current Alcohol intake frequency: does not drink Patient Tobacco Use Status: Current everyday Tobacco user Cigarette Packs Per Day: 1 Cigarettes Per Day: 20.0 Substance Use Type: Marijuana Advance Directives: No Advance Directives Information Provided: Yes Current occupational status: disabled Current occupation: right hand dominant Physical Exam ED Vital Signs: Vital Signs - 24 hr 02/23/25 19:40 Temperature 97.9 F Pulse Rate 80 Respiratory Rate 18 Blood Pressure 138/71 Pulse Oximetry 97 Oxygen Delivery Method Room Air BMI result Body Mass Index 24.0 Const Other: Alert, appears older than stated age Orientation/consciousness: patient oriented x3 Eyes Other: Visual acuity 0 OS, 2020 OD bulbar conjunctiva is injected, some inflammation of the palpebral conjunctiva, no foreign body seen the eye was flushed thoroughly, the eyelid was inverted, with fluorescein stain there was no ulcer or abrasion Resp Effort & Inspection: normal respiratory effort Cardio Other: Normal peripheral perfusion Skin Other: Warm dry no rash Neuro Other: Normal gait General: patient oriented x3, gait normal, no focal motor deficits and CN's II-XI intact bilaterally Extrem Other: Strength 5/5 bilateral lower extremity Psych Other: Cooperative Course Course Course Narrative: This is a Rapid Medical Examination (RME) performed by Kylee Johnston PA-C in triage. Full HPI, ROS, assessment and treatment plan per primary provider in the Main ED. Hx: 44 yo M here for eval of left eye irritation since last night. reports lying down and feeling like something fot into his eye. attempted to flush out the eye. woke up with crusting to the L eye. seen at [facility] - had tetracaine/fluorescein eval with irrigation. no FB noted. discharged w/ antibiotic eye ointment. has been unable to fill the script as his pharmacy is closed. still feels like there is something in his eye. also reports right lower back pain x3 mo, now having pain to his groin/ down right LE. no injury/trauma. denies hx of spinal surgery or IVDU. no urinary sx. Plan: eye exam, xr lumbar spine Medical Decision Making Medical Decision Making [facility] Narrative: 44-year-old male with a history of chronic back pain presents with multiple complaints. Patient states he has a cat, he thinks he has hair or cat litter in the left eye. He woke up this morning with discharge that was crusted. He was seen at [facility] prior to arrival, the debris was removed, the patient is still having irritation. Patient states they sent medication to his pharmacy but the pharmacy is closed. Denies change in symptoms. Patient states he does not use contact lenses he is not diabetic. Patient also complains of exacerbation of his chronic low back pain. Pain over right side with radiation down right lower extremity. Associated paresthesias. Denies weakness of lower extremity, urinary retention or bowel incontinence. Patient states he has a very physical job and performs a great deal of heavy lifting on a regular basis. Problem: Chronic back pain History: Per patient I have considered the following differential diagnoses: Conjunctivitis, foreign body retention, corneal abrasion/ulceration, lumbar strain, lumbar radiculopathy, compression fracture, cauda equina Plan: In regard to the eye complaint, there was no foreign body, the patient is having reactive conjunctivitis, ascending with the ketorolac drops and erythromycin as he has no risk factors for Pseudomonas. Regard to the back pain, it is chronic, x-ray obtained, he has significant degenerative changes. He is having radicular symptoms without red flag signs symptoms concerning for cord compression. We will treat appropriately. I have independently reviewed the following tests: X-ray lumbar spine:Findings: Normal vertebral body alignment. No acute fractures or dislocation. Mild multilevel spondylosis predominantly with facet arthropathy most notably at L4-L5 and L5-S1 levels. IMPRESSION: No acute findings. Mild multilevel spondylosis, predominantly with facet arthropathy at L4-L5 and L5-S1 levels. Differential Diagnosis Differential Diagnoses: The differential diagnosis associated with the presentation includes See medical decision-making Admission/Observation Consideration of admission/observation: Escalation of care including admission/observation considered Not applicable Radiology Impression Discussion of test interpretation with radiology: I have reviewed the radiologist's reading. Discharge Plan Discharge Clinical Impression: Acute left lumbar radiculopathy, Acute conjunctivitis of left eye Patient Disposition: Home, Self-Care Instructions: Lumbar Radiculopathy (ED), Conjunctivitis (ED) Additional Instructions: We are treating you for a reactive conjunctivitis from whatever debris you got in your eye. Use the erythromycin as directed take the ketorolac drops as directed for pain. In regard to your back pain, we are treating you for sciatica, see home care instructions. Take the steroid taper as directed take it in the morning. Use the ketorolac as directed this is an anti-inflammatory take it with food. Use the methocarbamol as needed for further pain, this is a muscle relaxant that will cause drowsiness, do not drive or operate machinery while taking the medication. Follow up with your primary care provider as needed. Prescriptions: New ketorolac 10 mg tablet 10 mg PO Q6H PRN (Reason: pain) Qty: 20 0RF Rx Instructions: maximum total duration of 5 days from all oral, intranasal, or parenteral formulations. Patient received an intramuscular dose of Toradol here in the emergency room methocarbamol 750 mg tablet 1,500 mg PO Q8H PRN (Reason: pain, moderate) Qty: 24 0RF methylprednisolone [Medrol (Sherman)] 4 mg tablets,dose pack 4 mg PO QAM Qty: 21 0RF Rx Instructions: Take per package instructions erythromycin 5 mg/gram (0.5 %) ointment 0.5 inch ophthalmic-Left QID 5 Days Qty: 3.5 0RF ketorolac [Acular] 0.5 % drops 1 drp ophthalmic (eye) QID PRN (Reason: pain) Qty: 5 0RF No Action hydrocodone-acetaminophen 5-325 mg tablet 1 tab PO Q6H PRN (Reason: pain) Qty: 15 0RF Rx Instructions: Partial Fill upon patient request. Print Language: Arabic
--- OUTSIDE RECORDS SUMMARY | 2025-02-23 20:09 | XMS_ITS | Clinical Summary ---
Author Organization Patient Business Ser [facility] Address [address] [place] [address] Care Team Providers Care [employer] Gauger Name Role Phone Physician, No Pcp Primary Care Provider Unavaila ble Allergies No known active allergies Medications erythromycin 5 mg/gram (0.5 %) ophthalmic ointment Place a 1/2 inch ribbon of ointment into the lower eyelid. 3.5 g 02/23/2025 03/05/20 25 Active Encounters Date Type Department Care Team Description 02/23/2025 3:44 PM EDT - 02/23/2025 4:02 PM EDT Emergency [facility] Emergency [address] [place] [id number] Abrasion of left cornea, initial encounter (Primary Dx) Discharge Disposition: Home or Self Care from Last 3 Months Surgical History Surgery Date Site/Laterality Comments HERNIA REPAIR PROCEDURE: HISTORICAL HERNIA REPAIR/ING APPENDECTOMY PROCEDURE: HISTORICAL APPENDECTOMY WISDOM TOOTH EXTRACTION PROCEDURE: HISTORICAL WISDOM TEETH EXTRACTION HAND SURGERY PROCEDURE: MS UNLISTED PROCEDURE HANDS/FINGERS Medical History Medical History [...] Mass Index 27.39 02/23/2025 3:26 PM EDT Plan of Treatment Health Maintenance Due Date Last Done Comments Colorectal Cancer Screening: Colonoscopy 1978 Hepatitis A Vaccines (1 of 2 - Risk 2-dose series) 1997 Hepatitis B Vaccines (1 of 3 - 19+ 3-dose series) 1997 Pneumococcal Vaccine: Pediatrics (0 to 5 Years) and At-Risk Patients (6 to 49 Years) (2 of 2 - PCV) 11/03/2017 11/03/2016 Cholesterol Screening (Lipid Panel) 04/14/2022 HIV Screening 04/14/2022 Hepatitis C Screening 04/14/2022 Social Influencers of Health Screening 04/14/2022 Depression Screening 05/16/2024 COVID-19 Vaccine (1 - 2023-2 5 season) 2025 Influenza Vaccine (#1) 2025 03/03/2010 DTaP,Tdap,and Td Vaccines (3 - Td or Tdap) 11/04/2032 11/04/2022, 08/06/2008 RSV Immunization Adult Patients (1 - 1-dose 75+ series) 2053 HIB Vaccines Aged Out No longer eligi [...] patient's age to complete this topic Insurance Care Teams [employer] Gauger Relationship Specialty Start Date End Date Physician, No Pcp PCP - General 07/31/24
[2025-02-23 21:57] VITALS: BP 110/59; PULSE 57; RESP 20; TEMP 36.7; O2SAT 96
[2025-02-23] MEDS: Erythromycin Base 0.5% Oph Oin 1 GM TUBE 1 CM EYE-LEFT (22:06)
[2025-02-23] MEDS: Fluorescein Sodium STRIP 1 STRIP EYE-LEFT (22:10)
[2025-02-23] MEDS: Tetracaine HCl/PF 0.5% Oph Sol 4 ML DROPS 1 DROP EYE-LEFT (22:10)
[2025-02-23 22:12] VITALS: BP 131/77; PULSE 57; RESP 16; O2SAT 97
[2025-02-23 22:19] VITALS: BP 131/77; PULSE 57; RESP 16; TEMP 36.9; O2SAT 97
== END 2025-02-23 22:26 | disposition home or self-care (01) ==
PROVIDERS: Emergency Provider Emergency Medicine
DX: M54.16 Radiculopathy, lumbar region (principal); H10.32 Unspecified acute conjunctivitis, left eye; M54.50 Low back pain, unspecified; F17.210 Nicotine dependence, cigarettes, uncomplicated; R20.2 Paresthesia of skin
CPT/HCPCS: 72100; 96372; 99284; J1885

== ENCOUNTER → 2025-02-23 19:42 | Outpatient (BNV) | payer OTHER, SELFPAY | PROVIDERS: Emergency Provider Emergency Medicine; Visit Provider Student in an Organized Health Care Education/Training Program | DX: M47.816 Spondylosis without myelopathy or radiculopathy, lumbar region (principal) | CPT/HCPCS: 72100 ==